=== PATIENT | female | born 1940 | race Caucasian/White ===

== ENCOUNTER 2017-07-03 16:02 | Inpatient (IN) | payer MEDICARE, OTHER, SELFPAY ==
[2017-07-03] VITALS (8 sets, daily range): BP systolic 127–161; BP diastolic 58–70; PULSE 73–86; RESP 16–20; TEMP 36.4–36.8; O2SAT 99–100; BMI 31.1; BMI 30.6
--- NOTE | 2017-07-03 16:31 | EKG12_ITS ---
Test Reason : GI BLEED Blood Pressure : / mmHG Vent. Rate : 080 BPM Atrial Rate : 080 BPM P-R Int : 160 ms QRS Dur : 086 ms QT Int : 390 ms P-R-T Axes : 075 000 078 degrees QTc Int : 449 ms Normal sinus rhythm Nonspecific T wave abnormality Abnormal ECG Confirmed by ADELINE STEVENSON, JI ([id number]), material expeditor BERNARD WOOD ([id number] on 07/06/2017 1:57:33 PM Referred By: Confirmed By:JI LR MD
--- NOTE | 2017-07-03 16:35 | ED.DCSUM_ITS ---
- ER Visit Summary Date of Service: 07/03/17 Chief Complaint: GI bleed History of Present Illness: The patient is a 76 F reports 3 episodes of bright red blood per rectum with stool since this morning. She reports rare abdominal cramping. She does not member when her last colonoscopy was that he has been several years. She has had polyps removed that were all benign. She also reports having a mechanical fall 2 days ago and developed a bruise on her right hip and her right elbow. Physical Examination: Vital signs are unremarkable. She is on home oxygen. Head and neck examination is unremarkable. Heart is regular rate and rhythm. Lung sounds are clear. Abdomen is soft with minimal suprapubic tenderness. No guarding or rebound. Rectal examination does reveal bright red blood on gloved finger. Test Results: EKG is sinus 80 with no sign of acute ischemia. CBC was normal white count. Hemoglobin is 9.7. Last hemoglobin in our system is from March 072016 at which time her hemoglobin was 12.2. Chemistry studies reveal bicarb of 33. BUN is 22. Creatinine is normal. INR and PTT are normal. Emergency Department Course and Treatment: Patient has remained stable on the emergency department. I spoke with Dr. Mcgill, on-call for general surgery. He will scope the patient tomorrow if hospitalist can do bowel prep tonight. I will speak with hospitalist for admission. Treatment Plan: [] Disposition: Admit Impression: GI bleed This note was generated with [employer] dictation software. It may contain incorrect words, spelling, and punctuation that were not noted in review of the chart prior to signing ED Disposition - Plan for ED Patient: Chief Complaint: GI Bleed Referrals: Care Physician,No Primary [NON-STAFF] -
[2017-07-03] MEDS: 0.9% Normal Saline 1,000 ML 150 ML IV ×2 (16:45→22:27)
[2017-07-03 16:49] LABS: Absolute Lymphocyte Count 1.93 X10^3/ul (0.83-4.51); Absolute Neutrophil Count 7.1 X10^3/uL (2.0-7.7); Basophil# 0.03 X10^3/uL; Basophil% 0.3 % (0-1); Eosinophil# 0.26 X10^3/uL; Eosinophils% 2.5 % (0-5); Hematocrit 30.9 % (37-47); Hemoglobin 9.7 g/dl (12.0-15.0); Lymphocyte # 1.93 X10^3/ul (4.0); Lymphocyte % 18.8 % (19-41); Mean Corp Hgb Conc 31.4 g/gl (32-36); Mean Corpuscular Hgb 30.8 pg (27.0-32.0); Mean Corpuscular Volume 98.1 fL (81-99); Mean Platelet Vol. 10.4 fl (6.2-12.0); Monocyte# 0.99 X10^3/uL; Monocyte% 9.6 % (0-10); Neutrophil # 7.07 X10^3/uL (2.7-7.7); Neutrophil % 68.7 % (47-70); Platelet Count 234 K/mm3 (150-450); RBC Distribution Width CV 14.2 % (11.6-14.6); Red Blood Count 3.15 M/mm3 (4.2-5.4); White Blood Count 10.3 K/mm3 (4.4-11.0)
[2017-07-03 16:53] LABS: POSITIVE COUNT NO; POSITIVE DIFFERENTIAL NO; POSITIVE MORPHOLOGY NO
[2017-07-03 17:00] LABS: International Normalized Ratio 1.1; Prothrombin Time (Protime)PT. 14.1 SECONDS (11.7-14.9)
[2017-07-03 17:01] LABS: Partial Thromboplast Time 32.6 Seconds (24.1-36.2)
[2017-07-03 17:02] LABS: Anion Gap 2 (5-15); BUN 22 mg/dL (7-18); BUN/Creat Ratio 23.1 RATIO (10-20); Calcium,Total 8.1 mg/dL (8.5-10.1); Chloride 107 mmol/L (98-107); Creatinine, Serum 0.95 mg/dL (0.55-1.02); EST Glomerular Filtration Rate 61 mL/min (>60); Est Glom Filt Rate - Afr Amer 73 mL/min (>60); Estimated Creatinine Clearance 42.98 ml/min; Glucose 146 mg/dL (74-106); Sodium Level 142 mmol/L (136-145)
--- NOTE | 2017-07-03 17:46 | PCM.HP.STD ---
Problem List (1) Rectal bleeding Status: Acute History of Present Illness Date of Admission: 07/03/17 Chief Complaint: rectal bleeding The patient is a 76 year old F with past medical history of [place] in April 2017 status post stent and on aspirin and Brilinta as well as hypertension and hyperlipidemia. She was admitted via the ED on July 03, 2017 with a complaint of 3 episode of bright red bleeding per rectum since morning of admission. There is the first time she has ever had such complaints. According to her she woke up this morning and wanted to have a bowel movement but noticed that it was only blood with associated clots. This required twice over the course of a few hours. She therefore decided to come in to the ED to be assessed. She also had associated lightheadedness and dizziness but denied any shortness of breath. She does remember the last time she had a colonoscopy but does remember that she had polyps removed which were benign. She had a fall 2 days ago and sustained a bruise on her right hip and right elbow. She denies any fever or chills, any cough or chest pain, diarrhea. She does admit to left lower quadrant abdominal pain which she states is chronic and she thought it was due to hernia that she had been told she had. In the ED vitals were unremarkable, and hemoglobin was 9.7. It was normal at the last count in February 2071 was 12.2. PT and INR within normal limits and BMP showed BUN of 22 and bicarb of 33 but was otherwise normal. She has been admitted to be worked up for rectal bleeding. She is to remain n.p.o. and Dr. Mcgill's plan is to scope her tomorrow. [] Past Medical History Past Medical History (Chronic Problems): Chronic Problems HLD (hyperlipidemia) (Chronic) HTN (hypertension) (Chronic) Chronic respiratory failure with hypoxia and hypercapnia (Chronic) Obesity (BMI 30.0-34.9) (Chronic) COPD (chronic obstructive pulmonary disease) (Chronic) Osteoarthritis (Chronic) Venous insufficiency of both lower extremities (Chronic) Allergies codeine Adverse Reaction (Verified 07/03/17 16:07) Upset Stomach Home Medications: Ambulatory Orders Medication Instructions Recorded Citalopram Hydrobromide 20 mg PO DAILY 03/06/17 [Citalopram HBr] Cyclobenzaprine [Flexeril] 5 mg PO DAILY 03/06/17 Dicyclomine HCl [Bentyl] 10 mg PO TIDAC PRN 03/06/17 Gabapentin [Neurontin] 300 mg PO TIDCM 03/06/17 Pantoprazole Sodium [Protonix] 40 mg PO DAILY 03/06/17 Albuterol IH (ProAir) [Proair Hfa 2 puff INHALATION Q4H PRN PRN 07/03/17 (SP)Vent Pts] Aspirin [Aspirin EC] 81 mg PO DAILY 07/03/17 Atorvastatin Calcium [Lipitor] 80 mg PO QHS 07/03/17 Carvedilol 6.25 mg PO BID 07/03/17 Fluticasone/Salmeterol [Advair 1 puff INHALATION BID 07/03/17 500/50 Mcg Diskus] Hydrocodone Bitart/Apap 5-325 1 tablet PO Q6H PRN PRN 07/03/17 [[place] 5MG-325MG] Lisinopril [Zestril] 10 mg PO DAILY 07/03/17 Nitroglycerin [Nitrostat] 0.4 mg SUBLINGUAL Q5M PRN 07/03/17 Ticagrelor [Brilinta] 90 mg PO BID 07/03/17 Tolterodine Tartrate [Tolterodine 4 mg PO DAILY 07/03/17 Tartrate ER] Triamcinolone 0.5% Cream 1 applic TOPICAL BID 07/03/17 [Triamcinolone Acetonide] Surgical History: cholecystectomy, hysterectomy - With bilateral oophorectomy for an abnormal ovary. 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 Denies: Chest Pain, Chest Tightness, Orthopnea, Palpitations, Syncope Respiratory: Denies: Cough, Shortness of breath at rest, Sputum production Gastrointestinal: Reports: Abdominal Pain, Hematochezia. Denies: Constipation, Diarrhea, Hematemesis, Nausea, Vomiting Genitourinary: Denies: Dysuria Musculoskeletal: Denies: Joint Pain, Joint Tenderness Skin: Reports: - - bruise over right hip Neurological: Denies: Numbness, Tingling, Focal weakness Psychiatric: Denies: Anxiety, Depression, Homicidal Ideations, Suicidal Ideations Hematologic/ Lymphatic: Denies: Easy Bruising, Easy Bleeding VTE Information - Inpt Only VTE Present on Admission: No VTE Mechan Device Prophylaxis: SCD's VTE Pharm Prophylaxis ordered?: No Reason prophylaxis not ordered:: Medical Contraindication - Rectal bleeding Patient Problems: Active and Suspected Problems Rectal bleeding (Acute) - Physical Exam General: Alert, Oriented x3, Cooperative, No apparent distress HEENT: Atraumatic, PERRLA, EOMI, Normocephalic Oral: Moist Mucosa Neck: Supple, No JVD, Negative Carotid Bruits Lungs: Clear to auscultation, Normal air movement, No rhonchi, No wheeze, No rales Cardiovascular: Regular rate, Regular Rhythm, Normal S1, Normal S2, No murmurs Abdomen: Bowel Sounds Present, Soft, Non Tender, Non-Distended, No Hepato-splenomegaly Extremities: No clubbing, No cyanosis, No edema, Capillary Refill Less than 3 Seconds, - Skin: No rashes, No breakdown, - - Has large ecchymotic bruise over the left hip Musculoskeletal: No Tenderness to Palpation of Joints or Extremities Lymphatic: No Cervical, Supraclavicular, or Inguinal Adenopathy Neurological: Cranial nerves II-XII grossly intact Psych/Mental Status: Normal Affect, Appropriate, Alert and oriented to time, place, person, mood and affect Vital Signs Temp Pulse Resp BP Pulse Ox 98.3 F 77 18 127/69 H 99 07/03/17 16:05 07/03/17 17:42 07/03/17 17:42 07/03/17 17:42 07/03/17 16:05 Laboratory Results 07/03/17 07/03/17 07/03/17 Range/Units 16:40 16:40 16:40 WBC 10.3 (4.4-11.0) K/mm3 RBC 3.15 L (4.2-5.4) M/mm3 Hgb 9.7 L (12.0-15.0) g/dl Hct 30.9 L (37-47) % MCV 98.1 (81-99) fL MCH 30.8 (27.0-32.0) pg MCHC 31.4 L (32-36) g/gl RDW 14.2 (11.6-14.6) % RDW Differential 51.0 H (35.1-43.9) fl Plt Count 234 (150-450) K/mm3 MPV 10.4 (6.2-12.0) fl Immature Gran % (Auto) 0.100 (0.0-0.9) % Neut % (Auto) 68.7 (47-70) % Lymph % (Auto) 18.8 L (19-41) % [place] % (Auto) 9.6 (0-10) % Eos % (Auto) 2.5 (0-5) % Baso % (Auto) 0.3 (0-1) % Absolute Neuts (auto) 7.1 (2.0-7.7) X10^3/uL Absolute Lymphs (auto) 1.93 (0.83-4.51) X10^3/ul Total Counted Not Reportable PT 14.1 (11.7-14.9) SECONDS INR 1.1 APTT 32.6 (24.1-36.2) Seconds Sodium 142 (136-145) mmol/L Potassium 4.0 (3.5-5.1) mmol/L Chloride 107 (98-107) mmol/L Carbon Dioxide 33.0 H (21.0-32.0) mmol/L Anion Gap 2 L (5-15) BUN 22 H (7-18) mg/dL Creatinine 0.95 (0.55-1.02) mg/dL Estim Creat Clear Calc 42.98 ml/min Est GFR (MDRD) Af Amer 73 (>60) mL/min Est GFR (MDRD) Non-Af 61 (>60) mL/min BUN/Creatinine Ratio 23.1 H (10-20) RATIO Glucose 146 H (74-106) mg/dL Calcium 8.1 L (8.5-10.1) mg/dL Blood Type Antibody Screen 07/03/17 Range/Units 16:40 WBC (4.4-11.0) K/mm3 RBC (4.2-5.4) M/mm3 Hgb (12.0-15.0) g/dl Hct (37-47) % MCV (81-99) fL MCH (27.0-32.0) pg MCHC (32-36) g/gl RDW (11.6-14.6) % RDW Differential (35.1-43.9) fl Plt Count (150-450) K/mm3 MPV (6.2-12.0) fl Immature Gran % (Auto) (0.0-0.9) % Neut % (Auto) (47-70) % Lymph % (Auto) (19-41) % [place] % (Auto) (0-10) % Eos % (Auto) (0-5) % Baso % (Auto) (0-1) % Absolute Neuts (auto) (2.0-7.7) X10^3/uL Absolute Lymphs (auto) (0.83-4.51) X10^3/ul Total Counted PT (11.7-14.9) SECONDS INR APTT (24.1-36.2) Seconds Sodium (136-145) mmol/L Potassium (3.5-5.1) mmol/L Chloride (98-107) mmol/L Carbon Dioxide (21.0-32.0) mmol/L Anion Gap (5-15) BUN (7-18) mg/dL Creatinine (0.55-1.02) mg/dL Estim Creat Clear Calc ml/min Est GFR (MDRD) Af Amer (>60) mL/min Est GFR (MDRD) Non-Af (>60) mL/min BUN/Creatinine Ratio (10-20) RATIO Glucose (74-106) mg/dL Calcium (8.5-10.1) mg/dL Blood Type O POSITIVE Antibody Screen NEGATIVE Assessment/Plan Active and Suspected Problems Rectal bleeding (Acute) 76-year-old lady with past medical history of benign polyps, [place] status post stenting April 2017, hypertension presents with a 1 day history of 3 episodes of bright red rectal bleeding which occurred on 07/03/2017. With associated clots. She also had lightheadedness and dizziness. Of note patient fell 2 days ago even though she denies loss of consciousness with it. 1. Hematochezia, possibly due to ischemic colitis vs diverticular bleed vs malignancy Currently stable. Vitals are within normal limits. History of removal of polyps but does not remember when she had her last colonoscopy. CBC significant for hemoglobin of 9.7. Last hemoglobin from February 2017 was 12.2. PT and INR was normal Admit to [facility] floor with telemetry. Keep n.p.o. Will start IV fluids normal saline at 150 cc/h. Patient GoLYTELY 2 L at 6 PM and 2 L tomorrow at 6 PM his bowel prep for possible EGD and colonoscopy by Dr. Mcgill tomorrow. Patient's blood pressure to be kept around 130 systolic and above to prevent hypotension on account of suspicion of ischemic colitis. Hold aspirin and Brilinta. 2. [place] s/p stents Stents put in April 2017. On aspirin and Brilinta. Will hold these due to rectal bleeding. On high intensity statin. 3. Hypertension: Controlled. Lisinopril 10 mg daily. Also on carvedilol 6.25 mg twice daily. Will continue. To maintain SBP>140mmHg due to suspicion for ischemic colitis 4. Hyperlipidemia: on statin. 4. DVT Prophylaxis: SCDs. 5. GI prophylaxis: IV PPI. Code Visit Inpatient E&M: 80197 Init Hosp L3
--- NOTE | 2017-07-03 17:57 | HP.PCM_ITS ---
Problem List (1) Rectal bleeding Status: Acute History of Present Illness Date of Admission: 07/03/17 Chief Complaint: rectal bleeding The patient is a 76 year old F with past medical history of [place] in April 2017 status post stent and on aspirin and Brilinta as well as hypertension and hyperlipidemia. She was admitted via the ED on July 03, 2017 with a complaint of 3 episode of bright red bleeding per rectum since morning of admission. There is the first time she has ever had such complaints. According to her she woke up this morning and wanted to have a bowel movement but noticed that it was only blood with associated clots. This required twice over the course of a few hours. She therefore decided to come in to the ED to be assessed. She also had associated lightheadedness and dizziness but denied any shortness of breath. She does remember the last time she had a colonoscopy but does remember that she had polyps removed which were benign. She had a fall 2 days ago and sustained a bruise on her right hip and right elbow. She denies any fever or chills, any cough or chest pain, diarrhea. She does admit to left lower quadrant abdominal pain which she states is chronic and she thought it was due to hernia that she had been told she had. In the ED vitals were unremarkable, and hemoglobin was 9.7. It was normal at the last count in February 2071 was 12.2. PT and INR within normal limits and BMP showed BUN of 22 and bicarb of 33 but was otherwise normal. She has been admitted to be worked up for rectal bleeding. She is to remain n.p.o. and Dr. Mcgill's plan is to scope her tomorrow. [] Past Medical History Past Medical History (Chronic Problems): Chronic Problems HLD (hyperlipidemia) (Chronic) HTN (hypertension) (Chronic) Chronic respiratory failure with hypoxia and hypercapnia (Chronic) Obesity (BMI 30.0-34.9) (Chronic) COPD (chronic obstructive pulmonary disease) (Chronic) Osteoarthritis (Chronic) Venous insufficiency of both lower extremities (Chronic) Allergies codeine Adverse Reaction (Verified 07/03/17 16:07) Upset Stomach Home Medications: Ambulatory Orders Medication Instructions Recorded Citalopram Hydrobromide 20 mg PO DAILY 03/06/17 [Citalopram HBr] Cyclobenzaprine [Flexeril] 5 mg PO DAILY 03/06/17 Dicyclomine HCl [Bentyl] 10 mg PO TIDAC PRN 03/06/17 Gabapentin [Neurontin] 300 mg PO TIDCM 03/06/17 Pantoprazole Sodium [Protonix] 40 mg PO DAILY 03/06/17 Albuterol IH (ProAir) [Proair Hfa 2 puff INHALATION Q4H PRN PRN 07/03/17 (SP)Vent Pts] Aspirin [Aspirin EC] 81 mg PO DAILY 07/03/17 Atorvastatin Calcium [Lipitor] 80 mg PO QHS 07/03/17 Carvedilol 6.25 mg PO BID 07/03/17 Fluticasone/Salmeterol [Advair 1 puff INHALATION BID 07/03/17 500/50 Mcg Diskus] Hydrocodone Bitart/Apap 5-325 1 tablet PO Q6H PRN PRN 07/03/17 [[place] 5MG-325MG] Lisinopril [Zestril] 10 mg PO DAILY 07/03/17 Nitroglycerin [Nitrostat] 0.4 mg SUBLINGUAL Q5M PRN 07/03/17 Ticagrelor [Brilinta] 90 mg PO BID 07/03/17 Tolterodine Tartrate [Tolterodine 4 mg PO DAILY 07/03/17 Tartrate ER] Triamcinolone 0.5% Cream 1 applic TOPICAL BID 07/03/17 [Triamcinolone Acetonide] Surgical History: cholecystectomy, hysterectomy - With bilateral oophorectomy for an abnormal ovary. 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 Denies: Chest Pain, Chest Tightness , Orthopnea, Palpitations, Syncope Respiratory: Denies: Cough, Shortness of breath at rest, Sputum production Gastrointestinal: Reports: Abdominal Pain, Hematochezia. Denies: Constipation, Diarrhea, Hematemesis, Nausea, Vomiting Genitourinary: Denies: Dysuria Musculoskeletal: Denies: Joint Pain, Joint Tenderness Skin: Reports: - - bruise over right hip Neurological: Denies: Numbness, Tingling, Focal weakness Psychiatric: Denies: Anxiety, Depression, Homicidal Ideations, Suicidal Ideations Hematologic/ Lymphatic: Denies: Easy Bruising, Easy Bleeding VTE Information - Inpt Only VTE Present on Admission: No VTE Mechan Device Prophylaxis: SCD's VTE Pharm Prophylaxis ordered?: No Reason prophylaxis not ordered:: Medical Contraindication - Rectal bleeding Patient Problems: Active and Suspected Problems Rectal bleeding (Acute) - Physical Exam General: Alert, Oriented x3, Cooperative, No apparent distress HEENT: Atraumatic, PERRLA, EOMI, Normocephalic Oral: Moist Mucosa Neck: Supple, No JVD, Negative Carotid Bruits Lungs: Clear to auscultation, Normal air movement, No rhonchi, No wheeze, No rales Cardiovascular: Regular rate, Regular Rhythm, Normal S1, Normal S2, No murmurs Abdomen: Bowel Sounds Present, Soft, Non Tender, Non-Distended, No Hepato- splenomegaly Extremities: No clubbing, No cyanosis, No edema, Capillary Refill Less than 3 Seconds, - Skin: No rashes, No breakdown, - - Has large ecchymotic bruise over the left hip Musculoskeletal: No Tenderness to Palpation of Joints or Extremities Lymphatic: No Cervical, Supraclavicular, or Inguinal Adenopathy Neurological: Cranial nerves II-XII grossly intact Psych/Mental Status: Normal Affect, Appropriate, Alert and oriented to time, place, person, mood and affect Vital Signs Temp Pulse Resp BP Pulse Ox 98.3 F 77 18 127/69 H 99 07/03/17 16:05 07/03/17 17:42 07/03/17 17:42 07/03/17 17:42 07/03/17 16:05 Laboratory Results 07/03/17 07/03/17 07/03/17 Range/Units 16:40 16:40 16:40 WBC 10.3 (4.4-11.0) K/mm3 RBC 3.15 L (4.2-5.4) M/mm3 Hgb 9.7 L (12.0-15.0) g/dl Hct 30.9 L (37-47) % MCV 98.1 (81-99) fL MCH 30.8 (27.0-32.0) pg MCHC 31.4 L (32-36) g/gl RDW 14.2 (11.6-14.6) % RDW Differential 51.0 H (35.1-43.9) fl Plt Count 234 (150-450) K/mm3 MPV 10.4 (6.2-12.0) fl Immature Gran % (Auto) 0.100 (0.0-0.9) % Neut % (Auto) 68.7 (47-70) % Lymph % (Auto) 18.8 L (19-41) % [place] % (Auto) 9.6 (0-10) % Eos % (Auto) 2.5 (0-5) % Baso % (Auto) 0.3 (0-1) % Absolute Neuts (auto) 7.1 (2.0-7.7) X10^3/uL Absolute Lymphs (auto) 1.93 (0.83-4.51) X10^3/ul Total Counted Not Reportable PT 14.1 (11.7-14.9) SECONDS INR 1.1 APTT 32.6 (24.1-36.2) Seconds Sodium 142 (136-145) mmol/L Potassium 4.0 (3.5-5.1) mmol/L Chloride 107 (98-107) mmol/L Carbon Dioxide 33.0 H (21.0-32.0) mmol/L Anion Gap 2 L (5-15) BUN 22 H (7-18) mg/dL Creatinine 0.95 (0.55-1.02) mg/dL Estim Creat Clear Calc 42.98 ml/min Est GFR (MDRD) Af Amer 73 (>60) mL/min Est GFR (MDRD) Non-Af 61 (>60) mL/min BUN/Creatinine Ratio 23.1 H (10-20) RATIO Glucose 146 H (74-106) mg/dL Calcium 8.1 L (8.5-10.1) mg/dL Blood Type Antibody Screen 07/03/17 Range/Units 16:40 WBC (4.4-11.0) K/mm3 RBC (4.2-5.4) M/mm3 Hgb (12.0-15.0) g/dl Hct (37-47) % MCV (81-99) fL MCH (27.0-32.0) pg MCHC (32-36) g/gl RDW (11.6-14.6) % RDW Differential (35.1-43.9) fl Plt Count (150-450) K/mm3 MPV (6.2-12.0) fl Immature Gran % (Auto) (0.0-0.9) % Neut % (Auto) (47-70) % Lymph % (Auto) (19-41) % [place] % (Auto) (0-10) % Eos % (Auto) (0-5) % Baso % (Auto) (0-1) % Absolute Neuts (auto) (2.0-7.7) X10^3/uL Absolute Lymphs (auto) (0.83-4.51) X10^3/ul Total Counted PT (11.7-14.9) SECONDS INR APTT (24.1-36.2) Seconds Sodium (136-145) mmol/L Potassium (3.5-5.1) mmol/L Chloride (98-107) mmol/L Carbon Dioxide (21.0-32.0) mmol/L Anion Gap (5-15) BUN (7-18) mg/dL Creatinine (0.55-1.02) mg/dL Estim Creat Clear Calc ml/min Est GFR (MDRD) Af Amer (>60) mL/min Est GFR (MDRD) Non-Af (>60) mL/min BUN/Creatinine Ratio (10-20) RATIO Glucose (74-106) mg/dL Calcium (8.5-10.1) mg/dL Blood Type O POSITIVE Antibody Screen NEGATIVE Assessment/Plan Active and Suspected Problems Rectal bleeding (Acute) 76-year-old lady with past medical history of benign polyps, [place] status post stenting April 2017, hypertension presents with a 1 day history of 3 episodes of bright red rectal bleeding which occurred on 07/03/2017. With associated clots. She also had lightheadedness and dizziness. Of note patient fell 2 days ago even though she denies loss of consciousness with it. 1. Hematochezia, possibly due to ischemic colitis vs diverticular bleed vs malignancy * Currently stable. Vitals are within normal limits. * History of removal of polyps but does not remember when she had her last colonoscopy. * CBC significant for hemoglobin of 9.7. Last hemoglobin from February 2017 was 12.2. * PT and INR was normal * Admit to [facility] floor with telemetry. * Keep n.p.o. Will start IV fluids normal saline at 150 cc/h. * Patient GoLYTELY 2 L at 6 PM and 2 L tomorrow at 6 PM his bowel prep for possible EGD and colonoscopy by Dr. Mcgill tomorrow. * Patient's blood pressure to be kept around 130 systolic and above to prevent hypotension on account of suspicion of ischemic colitis. * Hold aspirin and Brilinta. * * 2. [place] s/p stents * Stents put in April 2017. On aspirin and Brilinta. Will hold these due to rectal bleeding. On high intensity statin. * 3. Hypertension: Controlled. Lisinopril 10 mg daily. Also on carvedilol 6.25 mg twice daily. Will continue. To maintain SBP>140mmHg due to suspicion for ischemic colitis 4. Hyperlipidemia: on statin. 4. DVT Prophylaxis: SCDs. 5. GI prophylaxis: IV PPI. Code Visit Inpatient E&M: 20875 Init Hosp L3
[2017-07-03] MEDS: Albuterol 2.5 MG/3 ML VIAL.NEB. INHALATION (18:49)
[2017-07-03] MEDS: Budesonide Respules 0.5 MG/2 ML AMPUL.NEB. INHALATION (18:49)
[2017-07-03] MEDS: Electrolyte Solution/Peg's 4000 ML 2000 ML PO (20:45)
[2017-07-03] MEDS: Atorvastatin Calcium 80 MG Tablet PO (21:00)
[2017-07-03] MEDS: Carvedilol 6.25 MG Tablet PO (21:00)
[2017-07-03] MEDS: 0.9% NaCl Peripheral Flush Adult/Peds IV (22:28)
[2017-07-03] MEDS: Ondansetron 4 MG/2 ML Vial IV (22:28)
[2017-07-04] VITALS (22 sets, daily range): BP systolic 88–155; BP diastolic 44–84; PULSE 71–86; RESP 16–18; TEMP 36.6–37.2; O2SAT 97–100; BMI 30.6
[2017-07-04] MEDS: Electrolyte Solution/Peg's 4000 ML 2000 ML PO (05:10)
[2017-07-04] MEDS: 0.9% Normal Saline 1,000 ML 150 ML IV (05:17)
[2017-07-04 06:31] LABS: Hematocrit 23.3 % (37-47); Hemoglobin 7.2 g/dl (12.0-15.0); Mean Corp Hgb Conc 30.9 g/gl (32-36); Mean Corpuscular Hgb 31.3 pg (27.0-32.0); Mean Corpuscular Volume 101.3 fL (81-99); Mean Platelet Vol. 10.9 fl (6.2-12.0); Platelet Count 202 K/mm3 (150-450); RBC Distribution Width CV 13.9 % (11.6-14.6); RBC Distribution Width SD 49.1 fl (35.1-43.9); White Blood Count 9.7 K/mm3 (4.4-11.0)
[2017-07-04 06:35] LABS: Scan Indicated on CBC? Y/N NO
[2017-07-04 07:00] LABS: Anion Gap 5 (5-15); BUN 15 mg/dL (7-18); BUN/Creat Ratio 24.5 RATIO (10-20); Calcium,Total 7.7 mg/dL (8.5-10.1); Chloride 109 mmol/L (98-107); Creatinine, Serum 0.61 mg/dL (0.55-1.02); EST Glomerular Filtration Rate 101 mL/min (>60); Est Glom Filt Rate - Afr Amer 122 mL/min (>60); Estimated Creatinine Clearance 40.83 ml/min; Glucose 115 mg/dL (74-106); Sodium Level 141 mmol/L (136-145)
[2017-07-04] MEDS: Budesonide Respules 0.5 MG/2 ML AMPUL.NEB. INHALATION ×2 (07:01→18:58)
[2017-07-04] MEDS: Albuterol 2.5 MG/3 ML VIAL.NEB. INHALATION ×2 (07:01→18:58)
--- NOTE | 2017-07-04 08:10 | PCM.PROGNOTE ---
Patient Problems: Active and Suspected Problems Rectal bleeding (Acute) Subjective: Chief complaint: Follow-up after admission for GI bleed and acute blood loss anemia. Patient seen and examined. No acute events overnight. She still complaining of lower GI bleed. This morning, she had one episode of rectal bleeding with maroon colored stool. She denied significant abdominal pain, just reported mild discomfort at the lower abdomen. Denied nausea vomiting. Denied urinary symptoms, no hematuria. Vital signs are stable. - Physical Exam General: Alert, Oriented x3, Cooperative, No apparent distress HEENT: Atraumatic, PERRLA, EOMI Oral: Moist Mucosa, No Gingival or Mucosal Lesions/ Ulcerations Neck: Supple, No JVD, Negative Carotid Bruits, Trachea Midline, Thyroid Normal Size and Texture Lungs: Clear to auscultation, No rhonchi, No wheeze, No rales, Diminished Cardiovascular: Regular rate, Regular Rhythm, Normal S1, Normal S2, PMI Normal Abdomen: Bowel Sounds Present, Soft, Non Tender, Non-Distended, No Hepato-splenomegaly Extremities: No clubbing, No cyanosis, No edema Skin: No rashes, No breakdown Lymphatic: No Cervical, Supraclavicular, or Inguinal Adenopathy Neurological: Cranial nerves II-XII grossly intact, Motor Exam 5/5 strength throughout Psych/Mental Status: Normal Affect, Appropriate, Alert and oriented to time, place, person, mood and affect Vital Signs Temp Pulse Resp BP Pulse Ox 98.2 F 86 18 124/53 H 98 07/04/17 03:00 07/04/17 07:01 07/04/17 07:01 07/04/17 03:00 07/04/17 07:01 Oxygen Flow Rate 2 Oxygen Delivery Method Nasal Cannula Weight: 173 lb Body Mass Index (BMI) 30.6 Intake and Output for Last 24 Hours 07/02/17 07/03/17 07/04/17 23:59 23:59 23:59 Intake Total 2558 / 2558 1339 / 1339 Output Total 600 / 600 300 / 300 Balance 1957 / 1957 1039 / 1039 Laboratory Tests Past 24 Hrs 07/04/17 07/04/17 06:18 06:18 WBC 9.7 RBC 2.30 L Hgb 7.2 L Hct 23.3 L MCV 101.3 H MCH 31.3 MCHC 30.9 L RDW 13.9 RDW Differential 49.1 H Plt Count 202 MPV 10.9 Sodium 141 Potassium 4.0 Chloride 109 H Carbon Dioxide 27.0 Anion Gap 5 BUN 15 Creatinine 0.61 Estim Creat Clear Calc 40.83 Est GFR (MDRD) Af Amer 122 Est GFR (MDRD) Non-Af 101 BUN/Creatinine Ratio 24.5 H Glucose 115 H Calcium 7.7 L Assessment/Plan Active and Suspected Problems Rectal bleeding (Acute) This is a 76 years old female patient presented to the medicine because of rectal bleeding, found to have acute blood loss anemia. #1 GI bleed: Probably lower GI bleed secondary to diverticular bleed. Patient has been on aspirin and Brilinta since April,. She still having active bleeding at this time. Vital signs stable. She does have acute anemia. She is on preparation for colonoscopy. Her pro time and INR were normal. Platelet count is normal. General surgery consulted, plan for colonoscopy today. #2 acute blood loss anemia: Secondary to above. Baseline hemoglobin is normal. Admission hemoglobin was 9.7 g/dL, came down to 7.2 g/dL today. Plan: Transfuse 1 unit of packed RBCs, repeat H&H at 4 PM today. #3 CAD status post stents: She had a recent history of MA in April, status post stents. Aspirin and Brilinta held, she is on statins and Coreg as well as lisinopril. At this time, will restart Brilinta because of recent stents, keep holding aspirin, plan as above. #4 hypertension: Blood pressure stable, continue current medications. #5 hyperlipidemia: Continue statins. #6 COPD: Stable, pulse ox is normal on 2 L of oxygen. She is on bronchodilators. #7 DVT prophylaxis: SCDs. This note was generated with [employer] dictation software. It may contain incorrect words, spelling, and punctuation that were not noted in checking the note before signing. Code Visit Inpatient E&M: 13412 Subs Hosp L2
--- NOTE | 2017-07-04 08:18 | PN_ITS ---
Patient Problems: Active and Suspected Problems Rectal bleeding (Acute) Subjective: Chief complaint: Follow-up after admission for GI bleed and acute blood loss anemia. Patient seen and examined. No acute events overnight. She still complaining of lower GI bleed. This morning, she had one episode of rectal bleeding with maroon colored stool. She denied significant abdominal pain, just reported mild discomfort at the lower abdomen. Denied nausea vomiting. Denied urinary symptoms, no hematuria. Vital signs are stable. - Physical Exam General: Alert, Oriented x3, Cooperative, No apparent distress HEENT: Atraumatic, PERRLA, EOMI Oral: Moist Mucosa, No Gingival or Mucosal Lesions/ Ulcerations Neck: Supple, No JVD, Negative Carotid Bruits, Trachea Midline, Thyroid Normal Size and Texture Lungs: Clear to auscultation, No rhonchi, No wheeze, No rales, Diminished Cardiovascular: Regular rate, Regular Rhythm, Normal S1, Normal S2, PMI Normal Abdomen: Bowel Sounds Present, Soft, Non Tender, Non-Distended, No Hepato- splenomegaly Extremities: No clubbing, No cyanosis, No edema Skin: No rashes, No breakdown Lymphatic: No Cervical, Supraclavicular, or Inguinal Adenopathy Neurological: Cranial nerves II-XII grossly intact, Motor Exam 5/5 strength throughout Psych/Mental Status: Normal Affect, Appropriate, Alert and oriented to time, place, person, mood and affect Vital Signs Temp Pulse Resp BP Pulse Ox 98.2 F 86 18 124/53 H 98 07/04/17 03:00 07/04/17 07:01 07/04/17 07:01 07/04/17 03:00 07/04/17 07:01 Oxygen Flow Rate 2 Oxygen Delivery Method Nasal Cannula Weight: 173 lb Body Mass Index (BMI) 30.6 Intake and Output for Last 24 Hours 07/02/17 07/03/17 07/04/17 23:59 23:59 23:59 Intake Total 2558 / 2558 1339 / 1339 Output Total 600 / 600 300 / 300 Balance 1957 / 1957 1039 / 1039 Laboratory Tests Past 24 Hrs 07/04/17 07/04/17 06:18 06:18 WBC 9.7 RBC 2.30 L Hgb 7.2 L Hct 23.3 L MCV 101.3 H MCH 31.3 MCHC 30.9 L RDW 13.9 RDW Differential 49.1 H Plt Count 202 MPV 10.9 Sodium 141 Potassium 4.0 Chloride 109 H Carbon Dioxide 27.0 Anion Gap 5 BUN 15 Creatinine 0.61 Estim Creat Clear Calc 40.83 Est GFR (MDRD) Af Amer 122 Est GFR (MDRD) Non-Af 101 BUN/Creatinine Ratio 24.5 H Glucose 115 H Calcium 7.7 L Assessment/Plan Active and Suspected Problems Rectal bleeding (Acute) This is a 76 years old female patient presented to the medicine because of rectal bleeding, found to have acute blood loss anemia. #1 GI bleed: Probably lower GI bleed secondary to diverticular bleed. Patient has been on aspirin and Brilinta since April,. She still having active bleeding at this time. Vital signs stable. She does have acute anemia. She is on preparation for colonoscopy. Her pro time and INR were normal. Platelet count is normal. General surgery consulted, plan for colonoscopy today. #2 acute blood loss anemia: Secondary to above. Baseline hemoglobin is normal. Admission hemoglobin was 9.7 g/dL, came down to 7.2 g/dL today. Plan: Transfuse 1 unit of packed RBCs, repeat H&H at 4 PM today. #3 CAD status post stents: She had a recent history of DC in April, status post stents. Aspirin and Brilinta held, she is on statins and Coreg as well as lisinopril. At this time, will restart Brilinta because of recent stents, keep holding aspirin, plan as above. #4 hypertension: Blood pressure stable, continue current medications. #5 hyperlipidemia: Continue statins. #6 COPD: Stable, pulse ox is normal on 2 L of oxygen. She is on bronchodilators. #7 DVT prophylaxis: SCDs. This note was generated with [employer] dictation software. It may contain incorrect words, spelling, and punctuation that were not noted in checking the note before signing. Code Visit Inpatient E&M: 96594 Subs Hosp L2
--- NOTE | 2017-07-04 09:06 | NURSING ---
Patient blood transfusion begins at this time- This RN in with patient for first 15 minutes of transfusion while running at 15cc/hr.
--- NOTE | 2017-07-04 09:11 | NURSING ---
Addendum entered by Yadira Rodrigez 07/04/17 09:13: pick up operator would be 1300 today with colonoscopy at 1400 Original Note: Dr. Garcia to complete colonoscopy today. Uncertain of time as patient is added on to current schedule. Could be around 1100, but most likely will be 1300 today
--- NOTE | 2017-07-04 09:22 | PCM.CONS.GEN ---
Problem List (1) Rectal bleeding Status: Acute Reason for Consult Date of Consultation: 07/04/17 Reason for Consultation: GI bleed History of Present Illness: The patient is a 76 year old F who presents with multiple episodes of rectal bleeding. Patient notes she had multiple episodes of bleeding and clots per rectum yesterday. Patient states she had crampiness of the stomach and then diarrhea which ended up being mostly blood. She noted melena and bright red blood. She denies previous history of rectal bleeding. She denies family history of colon cancer. She denies chest pain and hematemesis. She did note feeling dizzy and lightheadedness. Patient stated her last colonoscopy was approximately 5 years ago at [facility]. She noted she had polyps previously. Patient notes her bowel habits are usually normal and soft. Patient notes she had a myocardial infarction in April 2017. She had a stent placed at [facility]. She has not followed up with a well cleaner since her M.I. She is currently maintained on daily 81 mg aspirin and Brilinta. Patient stated she started the Brilinta 2 weeks ago.She currently denies chest pain or increased shortness of breath. Patient also has a history of COPD. She is currently on 1.5-2 Liters of oxygen via nasal canula at home. She notes being on home oxygen for several years. She is a former smoker. She quit 18 years ago. Patient does not follow with a billet sawyer. She notes her PCP manages her COPD and her anticoagulation. Patient denies alcohol consumption. Patient's previous abdominal surgeries include gallbladder, appendix and total hysterectomy. Past Medical History Past Medical History (Chronic Problems): Chronic Problems CAD (coronary artery disease) (Chronic) HLD (hyperlipidemia) (Chronic) HTN (hypertension) (Chronic) Chronic respiratory failure with hypoxia and hypercapnia (Chronic) Obesity (BMI 30.0-34.9) (Chronic) Hiatal hernia with gastroesophageal reflux (Chronic) COPD (chronic obstructive pulmonary disease) (Chronic) Osteoarthritis (Chronic) Venous insufficiency of both lower extremities (Chronic) Allergies codeine Adverse Reaction (Verified 07/03/17 16:07) Upset Stomach Home Medications: Ambulatory Orders Medication Instructions Recorded Citalopram Hydrobromide 20 mg PO DAILY 03/06/17 [Citalopram HBr] Cyclobenzaprine [Flexeril] 5 mg PO DAILY 03/06/17 Dicyclomine HCl [Bentyl] 10 mg PO TIDAC PRN 03/06/17 Gabapentin [Neurontin] 300 mg PO TIDCM 03/06/17 Pantoprazole Sodium [Protonix] 40 mg PO DAILY 03/06/17 Albuterol IH (ProAir) [Proair Hfa 2 puff INHALATION Q4H PRN PRN 07/03/17 (SP)Vent Pts] Aspirin [Aspirin EC] 81 mg PO DAILY 07/03/17 Atorvastatin Calcium [Lipitor] 80 mg PO QHS 07/03/17 Carvedilol 6.25 mg PO BID 07/03/17 Fluticasone/Salmeterol [Advair 1 puff INHALATION BID 07/03/17 500/50 Mcg Diskus] Hydrocodone Bitart/Apap 5-325 1 tablet PO Q6H PRN PRN 07/03/17 [[place] 5MG-325MG] Lisinopril [Zestril] 10 mg PO DAILY 07/03/17 Nitroglycerin [Nitrostat] 0.4 mg SUBLINGUAL Q5M PRN 07/03/17 Ticagrelor [Brilinta] 90 mg PO BID 07/03/17 Tolterodine Tartrate [Tolterodine 4 mg PO DAILY 07/03/17 Tartrate ER] Triamcinolone 0.5% Cream 1 applic TOPICAL BID 07/03/17 [Triamcinolone Acetonide] Surgical History: cholecystectomy, hysterectomy - With bilateral oophorectomy for an abnormal ovary. 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: No pertinent DIRECTOR OF GROUP COUNSELING PROGRAM history Lives: Alone Smoking Status: Former smoker Alcohol: None - *Family History Maternal History Items: - - denies any hx of CAD Paternal History Items: Heart Disease - in her father at 60 YOA Review of Systems Constitutional: Denies: Chills, Fever, Weight Change HEENT: Denies: Head Aches, Sinus Congestion, Sinus Drainage Cardiovascular: Denies: Chest Pain, Palpitations Respiratory: Denies: Cough, Shortness of breath at rest, Sputum production Gastrointestinal: Reports: Abdominal Pain - More crampy-like symptoms, Diarrhea, Hematochezia, Melena. Denies: Hematemesis, Nausea, Vomiting Genitourinary: Denies: Dysuria Musculoskeletal: Reports: Joint stiffness Skin: Denies: Rash, Wounds Neurological: Denies: Numbness, Tingling, Focal weakness Psychiatric: Denies: Anxiety, Depression, Homicidal Ideations, Suicidal Ideations Hematologic/ Lymphatic: Reports: Anemia. Denies: Easy Bruising, Easy Bleeding Patient Problems: Active and Suspected Problems Rectal bleeding (Acute) - Physical Exam General: Alert, Oriented x3, Cooperative HEENT: Atraumatic, PERRLA, EOMI, Normocephalic Neck: Supple, No JVD, Negative Carotid Bruits Lungs: Clear to auscultation, Normal air movement Cardiovascular: Regular rate, No murmurs Abdomen: Bowel Sounds Present, Soft, Non-Distended, Tender - generalized Extremities: No edema, Capillary Refill Less than 3 Seconds Skin: No rashes, No breakdown Musculoskeletal: No Tenderness to Palpation of Joints or Extremities Neurological: Cranial nerves II-XII grossly intact Psych/Mental Status: Normal Affect, Appropriate Vital Signs Temp Pulse Resp BP Pulse Ox 98.5 F 71 16 129/58 H 100 07/04/17 09:03 07/04/17 09:03 07/04/17 09:03 07/04/17 09:03 07/04/17 09:03 Oxygen Flow Rate 2 Oxygen Delivery Method Nasal Cannula Weight: 173 lb Body Mass Index (BMI) 30.6 Intake and Output for Last 24 Hours 07/02/17 07/03/17 07/04/17 23:59 23:59 23:59 Intake Total 2558 / 2558 1339 / 1339 Output Total 600 / 600 300 / 300 Balance 1957 / 1957 1039 / 1039 Laboratory Tests Past 24 Hrs 07/04/17 07/04/17 06:18 06:18 WBC 9.7 RBC 2.30 L Hgb 7.2 L Hct 23.3 L MCV 101.3 H MCH 31.3 MCHC 30.9 L RDW 13.9 RDW Differential 49.1 H Plt Count 202 MPV 10.9 Sodium 141 Potassium 4.0 Chloride 109 H Carbon Dioxide 27.0 Anion Gap 5 BUN 15 Creatinine 0.61 Estim Creat Clear Calc 40.83 Est GFR (MDRD) Af Amer 122 Est GFR (MDRD) Non-Af 101 BUN/Creatinine Ratio 24.5 H Glucose 115 H Calcium 7.7 L Assessment/Plan Active and Suspected Problems Rectal bleeding (Acute) I have been consulted in conjunction with Dr. Mcgill. Dr. Mcgill will independently evaluate this patient Impression: Lower GI bleed Plan: I have discussed this patient with Dr. Mcgill. Dr. Mcgill will plan to perform EGD and colonoscopy with possible biopsies under MAC today. Procedure details, risks, and benefits have been explained to the patient. Patient has had the opportunity to ask and have questions answered. Patient verbally understands and agrees to proceed with the proposed procedure. Patient has been undergoing a bowel prep. Her ASA and Brilinta have been held since yesterday. Restarting anticoagulation will be determined following the scope. Thank you for allowing me to participate in this patient's care. My recommendations will be available via electronic medical records.
[2017-07-04] MEDS: 0.9% NaCl Peripheral Flush Adult/Peds IV (09:33)
[2017-07-04] MEDS: Ondansetron 4 MG/2 ML Vial IV (09:33)
--- NOTE | 2017-07-04 09:34 | CON.PCM_ITS ---
Problem List (1) Rectal bleeding Status: Acute Reason for Consult Date of Consultation: 07/04/17 Reason for Consultation: GI bleed History of Present Illness: The patient is a 76 year old F who presents with multiple episodes of rectal bleeding. Patient notes she had multiple episodes of bleeding and clots per rectum yesterday. Patient states she had crampiness of the stomach and then diarrhea which ended up being mostly blood. She noted melena and bright red blood. She denies previous history of rectal bleeding. She denies family history of colon cancer. She denies chest pain and hematemesis. She did note feeling dizzy and lightheadedness. Patient stated her last colonoscopy was approximately 5 years ago at [facility]. She noted she had polyps previously. Patient notes her bowel habits are usually normal and soft. Patient notes she had a myocardial infarction in April 2017. She had a stent placed at [facility]. She has not followed up with a sql tech since her M.I. She is currently maintained on daily 81 mg aspirin and Brilinta. Patient stated she started the Brilinta 2 weeks ago.She currently denies chest pain or increased shortness of breath. Patient also has a history of COPD. She is currently on 1.5-2 Liters of oxygen via nasal canula at home. She notes being on home oxygen for several years. She is a former smoker. She quit 18 years ago. Patient does not follow with a railroad purchasing agent. She notes her PCP manages her COPD and her anticoagulation. Patient denies alcohol consumption. Patient's previous abdominal surgeries include gallbladder, appendix and total hysterectomy. Past Medical History Past Medical History (Chronic Problems): Chronic Problems CAD (coronary artery disease) (Chronic) HLD (hyperlipidemia) (Chronic) HTN (hypertension) (Chronic) Chronic respiratory failure with hypoxia and hypercapnia (Chronic) Obesity (BMI 30.0-34.9) (Chronic) Hiatal hernia with gastroesophageal reflux (Chronic) COPD (chronic obstructive pulmonary disease) (Chronic) Osteoarthritis (Chronic) Venous insufficiency of both lower extremities (Chronic) Allergies codeine Adverse Reaction (Verified 07/03/17 16:07) Upset Stomach Home Medications: Ambulatory Orders Medication Instructions Recorded Citalopram Hydrobromide 20 mg PO DAILY 03/06/17 [Citalopram HBr] Cyclobenzaprine [Flexeril] 5 mg PO DAILY 03/06/17 Dicyclomine HCl [Bentyl] 10 mg PO TIDAC PRN 03/06/17 Gabapentin [Neurontin] 300 mg PO TIDCM 03/06/17 Pantoprazole Sodium [Protonix] 40 mg PO DAILY 03/06/17 Albuterol IH (ProAir) [Proair Hfa 2 puff INHALATION Q4H PRN PRN 07/03/17 (SP)Vent Pts] Aspirin [Aspirin EC] 81 mg PO DAILY 07/03/17 Atorvastatin Calcium [Lipitor] 80 mg PO QHS 07/03/17 Carvedilol 6.25 mg PO BID 07/03/17 Fluticasone/Salmeterol [Advair 1 puff INHALATION BID 07/03/17 500/50 Mcg Diskus] Hydrocodone Bitart/Apap 5-325 1 tablet PO Q6H PRN PRN 07/03/17 [[place] 5MG-325MG] Lisinopril [Zestril] 10 mg PO DAILY 07/03/17 Nitroglycerin [Nitrostat] 0.4 mg SUBLINGUAL Q5M PRN 07/03/17 Ticagrelor [Brilinta] 90 mg PO BID 07/03/17 Tolterodine Tartrate [Tolterodine 4 mg PO DAILY 07/03/17 Tartrate ER] Triamcinolone 0.5% Cream 1 applic TOPICAL BID 07/03/17 [Triamcinolone Acetonide] Surgical History: cholecystectomy, hysterectomy - With bilateral oophorectomy for an abnormal ovary. 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 Denies: Hematemesis, Nausea, Vomiting Genitourinary: Denies: Dysuria Musculoskeletal: Reports: Joint stiffness Skin: Denies: Rash, Wounds Neurological: Denies: Numbness, Tingling, Focal weakness Psychiatric: Denies: Anxiety, Depression, Homicidal Ideations, Suicidal Ideations Hematologic/ Lymphatic: Reports: Anemia. Denies: Easy Bruising, Easy Bleeding Patient Problems: Active and Suspected Problems Rectal bleeding (Acute) - Physical Exam General: Alert, Oriented x3, Cooperative HEENT: Atraumatic, PERRLA, EOMI, Normocephalic Neck: Supple, No JVD, Negative Carotid Bruits Lungs: Clear to auscultation, Normal air movement Cardiovascular: Regular rate, No murmurs Abdomen: Bowel Sounds Present, Soft, Non-Distended, Tender - generalized Extremities: No edema, Capillary Refill Less than 3 Seconds Skin: No rashes, No breakdown Musculoskeletal: No Tenderness to Palpation of Joints or Extremities Neurological: Cranial nerves II-XII grossly intact Psych/Mental Status: Normal Affect, Appropriate Vital Signs Temp Pulse Resp BP Pulse Ox 98.5 F 71 16 129/58 H 100 07/04/17 09:03 07/04/17 09:03 07/04/17 09:03 07/04/17 09:03 07/04/17 09:03 Oxygen Flow Rate 2 Oxygen Delivery Method Nasal Cannula Weight: 173 lb Body Mass Index (BMI) 30.6 Intake and Output for Last 24 Hours 07/02/17 07/03/17 07/04/17 23:59 23:59 23:59 Intake Total 2558 / 2558 1339 / 1339 Output Total 600 / 600 300 / 300 Balance 1957 / 1957 1039 / 1039 Laboratory Tests Past 24 Hrs 07/04/17 07/04/17 06:18 06:18 WBC 9.7 RBC 2.30 L Hgb 7.2 L Hct 23.3 L MCV 101.3 H MCH 31.3 MCHC 30.9 L RDW 13.9 RDW Differential 49.1 H Plt Count 202 MPV 10.9 Sodium 141 Potassium 4.0 Chloride 109 H Carbon Dioxide 27.0 Anion Gap 5 BUN 15 Creatinine 0.61 Estim Creat Clear Calc 40.83 Est GFR (MDRD) Af Amer 122 Est GFR (MDRD) Non-Af 101 BUN/Creatinine Ratio 24.5 H Glucose 115 H Calcium 7.7 L Assessment/Plan Active and Suspected Problems Rectal bleeding (Acute) I have been consulted in conjunction with Dr. Mcgill. Dr. Mcgill will independently evaluate this patient Impression: Lower GI bleed Plan: I have discussed this patient with Dr. Mcgill. Dr. Mcgill will plan to perform EGD and colonoscopy with possible biopsies under MAC today. Procedure details, risks, and benefits have been explained to the patient. Patient has had the opportunity to ask and have questions answered. Patient verbally understands and agrees to proceed with the proposed procedure. Patient has been undergoing a bowel prep. Her ASA and Brilinta have been held since yesterday. Restarting anticoagulation will be determined following the scope. Thank you for allowing me to participate in this patient's care. My recommendations will be available via electronic medical records.
--- NOTE | 2017-07-04 10:27 | NURSING ---
Patient had 2 liquid BM's this morning- a stool/ urine mix. Both times contents in hat were maroon in color- small pencil eraser sized clots in first specimen however, no clots observed in second. Patient nauseated this morning at 0930 after blood had been in process for about 30 minutes. She denies any other complaints, including pain, etc. Zofran given and effective.
--- NOTE | 2017-07-04 12:17 | PCM.OPRPT ---
Report of Operation Date of Procedure: 07/04/17 Pre-Operative Diagnosis: GI bleed Post-Operative Diagnosis: Same Surgery/Procedure Performed:: 1. Esophagogastroduodenoscopy. 2. Colonoscopy Type of Anesthesia:: MAC Anesthesiologist: Nahed Johnson Description of Procedure: Patient was brought into the endoscopy suite. Back of her throat was sprayed with Cetacaine spray. Bite-block was placed. She was given graded anesthesia. Scope was inserted in the back of the throat and directed down through the esophagus into the stomach and into the duodenum without difficulty. Operative findings: 1. Duodenum: Normal appearance no mass lesions no ulcerations no bleeding 2. Stomach: Normal appearance no mass lesions no ulcerations no signs of bleeding 3. Esophagus: Normal appearance no mass lesions no signs of bleeding. There did not appear to be any signs of bleeding from her upper scope. No biopsies were taken. Colonoscope was inserted into the rectum. It was directed through the sigmoid colon, descending colon, transverse colon, ascending colon, to the cecum. Operative findings: 1. Cecum: Normal appearance no mass lesions normal ileocecal valve no signs of bleeding 2. Ascending colon: Normal appearance no mass lesions no signs of bleeding 3. Transverse colon: Normal appearance no mass lesions no signs of bleeding 4. Descending colon: Normal appearance signs of old blood in the descending colon no active bleeding was identified minimal diverticular disease was identified 5. Sigmoid colon: Significant diverticular disease significant clotting of blood in this area no signs of active bleeding was identified. 6. Rectum: Clotted blood within the rectum itself no active signs of bleeding. No mass lesions identified. No active bleeding was identified. It looks like this is diverticular in nature and more than likely from the descending or sigmoid colon. If she continues to have a drop in her hemoglobin she will need to be transferred to a tertiary referral center for an active arteriogram to see if they can find an active bleeding source. Given the fact that there was a lot of clotted blood which I try to remove as best that I can and irrigate out the colon is best that I can she is still going to need to have a colonoscopy in a year to make sure that there are no polyps identified. - Admit VTE Documentation VTE Present on Admission: No VTE Mechan Device Prophylaxis: None VTE Pharm Prophylaxis ordered?: No Reason prophylaxis not ordered:: Treatment Not Indicated
[2017-07-04] MEDS: Gabapentin 300 MG Capsule PO ×2 (13:23→17:13)
[2017-07-04] MEDS: Lisinopril 10 MG Tablet PO (13:23)
[2017-07-04] MEDS: Carvedilol 6.25 MG Tablet PO ×2 (13:24→21:06)
[2017-07-04] MEDS: Tolterodine Tartrate 4 MG CAP.SA PO (13:24)
[2017-07-04] MEDS: Citalopram 20 MG Tablet PO (13:24)
--- NOTE | 2017-07-04 13:47 | NURSING ---
Ellie Roman, Jake. paged at this time. Notified that pt remains NPO and is requesting to eat- ok for diet? Also, patient's brillinta was placed on hold and aspirin d/c'ed- would you like restarted? Ellie Roman states that patient may have cardiac/ low cholesterol diet due to hx recent ID starting now. Brillinta was placed on hold for procedure, but Dr. Vora was wanting medication to be resumed today- may resume Brillinta but continue to hold aspirin at this time. [ End ]
--- NOTE | 2017-07-04 13:53 | CASEMGMT ---
GERTRUDE CM Assessment: LULU Strata 3. See attached link for full assessment. Disposition Plan: Home with support of spouse.
--- NOTE | 2017-07-04 15:27 | NURSING ---
Addendum entered by Yadira Rodrigez 07/05/17 08:08: Doctor Vielka was notified yesterday after lab results received- new order for 1 unit PRBC to be given Original Note: This RN called lab at this time and requested for laborer to draw H&H at this time- pt continues bleeding and is bright red at this time and is passing large clots. Awaiting labs to be drawn and then doctor to be notified.
[2017-07-04 15:44] LABS: Hematocrit 25.3 % (37-47)
[2017-07-04] MEDS: TICAGRELOR 90 MG TABLET PO (21:06)
[2017-07-04] MEDS: Atorvastatin Calcium 80 MG Tablet PO (21:06)
[2017-07-04] MEDS: 0.9% Normal Saline 1,000 ML 100 ML IV (22:54)
[2017-07-05] VITALS (13 sets, daily range): BP systolic 135–158; BP diastolic 50–78; PULSE 75–88; RESP 16–18; TEMP 36.6–36.9; O2SAT 86–99
[2017-07-05 06:37] LABS: Absolute Lymphocyte Count 2.16 X10^3/ul (0.83-4.51); Absolute Neutrophil Count 6.2 X10^3/uL (2.0-7.7); Basophil# 0.03 X10^3/uL; Basophil% 0.3 % (0-1); Eosinophil# 0.26 X10^3/uL; Eosinophils% 2.7 % (0-5); Hematocrit 24.2 % (37-47); Hemoglobin 7.7 g/dl (12.0-15.0); Lymphocyte # 2.16 X10^3/ul (4.0); Lymphocyte % 22.2 % (19-41); Mean Corp Hgb Conc 31.8 g/gl (32-36); Mean Corpuscular Hgb 30.7 pg (27.0-32.0); Mean Corpuscular Volume 96.4 fL (81-99); Mean Platelet Vol. 11.2 fl (6.2-12.0); Monocyte# 1.08 X10^3/uL; Monocyte% 11.1 % (0-10); Neutrophil % 63.6 % (47-70); Platelet Count 181 K/mm3 (150-450); RBC Distribution Width SD 52.7 fl (35.1-43.9); Red Blood Count 2.51 M/mm3 (4.2-5.4); White Blood Count 9.7 K/mm3 (4.4-11.0)
[2017-07-05 06:47] LABS: POSITIVE COUNT NO; POSITIVE DIFFERENTIAL NO; POSITIVE MORPHOLOGY NO
--- NOTE | 2017-07-05 07:09 | PCM.PN.SRG ---
Patient Problems: Active and Suspected Problems Rectal bleeding (Acute) Subjective: Patient evaluated resting comfortably in bed. Patient continues to note multiple small clots and bright red blood per rectum. She denies bowel movement since the procedure. Patient's hemoglobin has dropped to 7.7 this morning. Patient did receive 2 units of blood yesterday. She denies abdominal pain/discomfort. - Physical Exam General: Alert, Oriented x3, Cooperative Abdomen: Bowel Sounds Present, Soft, Non Tender, Non-Distended Vital Signs Temp Pulse Resp BP Pulse Ox 98.2 F 75 16 135/50 H 99 07/05/17 02:13 07/05/17 02:13 07/05/17 02:13 07/05/17 02:13 07/05/17 02:13 Oxygen Flow Rate 2 Oxygen Delivery Method Nasal Cannula Weight: 173 lb Body Mass Index (BMI) 30.6 Intake and Output for Last 24 Hours 07/03/17 07/04/17 07/05/17 23:59 23:59 23:59 Intake Total 2558 / 2558 5210 / 5210 814 / 814 Output Total 600 / 600 1000 / 1000 100 / 100 Balance 1957 / 1957 4210 / 4210 714 / 714 Laboratory Tests Past 24 Hrs 07/04/17 07/04/17 07/05/17 15:34 16:40 05:42 WBC 9.7 RBC 2.51 L Hgb 8.0 L 7.7 L Hct 25.3 L 24.2 L MCV 96.4 MCH 30.7 MCHC 31.8 L RDW 15.0 H RDW Differential 52.7 H Plt Count 181 MPV 11.2 Immature Gran % (Auto) 0.100 Neut % (Auto) 63.6 Lymph % (Auto) 22.2 [place] % (Auto) 11.1 H Eos % (Auto) 2.7 Baso % (Auto) 0.3 Absolute Neuts (auto) 6.2 Absolute Lymphs (auto) 2.16 Total Counted Not Reportable Crossmatch See Detail Assessment/Plan Active and Suspected Problems Rectal bleeding (Acute) I am following this patient in conjunction with Dr. Mcgill Lower GI bleed. No active bleeding identified on the colonoscopy yesterday. Patient continues to have bright red blood and dark clots per rectum. Her hemoglobin continues to decrease despite 2 units of blood given yesterday Will discuss patient with Dr. Mcgill Per scope operative report, if patient continued to bleed and have decreased hemoglobin, possible transfer to a tertiary facility may be needed for further evaluation including an arteriogram to determine source of bleeding.
[2017-07-05] MEDS: Albuterol 2.5 MG/3 ML VIAL.NEB. INHALATION ×2 (07:39→13:22)
[2017-07-05] MEDS: Budesonide Respules 0.5 MG/2 ML AMPUL.NEB. INHALATION (07:39)
--- NOTE | 2017-07-05 08:06 | NURSING ---
Dr. Vora to unit after notification of h&h dropping and continuation of bright red bleeding. States that he spoke with the patient and that she is deciding where she would like to be transferred and case management will need to be notified and arrangements made. Will notify case management when arrive.
--- NOTE | 2017-07-05 08:12 | PN_ITS ---
Patient Problems: Active and Suspected Problems Rectal bleeding (Acute) Subjective: Chief complaint: Follow-up after admission for GI bleed and acute blood loss anemia. Patient seen and examined. No acute events overnight. She continued to have active rectal bleeding, large amount with lower abdominal discomfort/cramping. Denied nausea vomiting. Reported intermittent dizziness upon standing. Her vital signs are stable. - Physical Exam General: Alert, Oriented x3, Cooperative, No apparent distress HEENT: Atraumatic, PERRLA, EOMI Oral: Moist Mucosa, No Gingival or Mucosal Lesions/ Ulcerations Neck: Supple, No JVD, Negative Carotid Bruits, Trachea Midline, Thyroid Normal Size and Texture Lungs: Clear to auscultation, No rhonchi, No wheeze, No rales, Diminished Cardiovascular: Regular rate, Regular Rhythm, Normal S1, Normal S2 Abdomen: Bowel Sounds Present, Soft, Non Tender, Non-Distended, No Hepato- splenomegaly Extremities: No clubbing, No cyanosis, No edema Skin: No rashes, No breakdown Lymphatic: No Cervical, Supraclavicular, or Inguinal Adenopathy Neurological: Cranial nerves II-XII grossly intact, Neuro grossly intact Psych/Mental Status: Normal Affect, Appropriate, Alert and oriented to time, place, person, mood and affect Vital Signs Temp Pulse Resp BP Pulse Ox 98.2 F 77 16 135/50 H 99 07/05/17 02:13 07/05/17 07:38 07/05/17 02:13 07/05/17 02:13 07/05/17 02:13 Oxygen Flow Rate 2 Oxygen Delivery Method Nasal Cannula Weight: 173 lb Body Mass Index (BMI) 30.6 Intake and Output for Last 24 Hours 07/03/17 07/04/17 07/05/17 23:59 23:59 23:59 Intake Total 2558 / 2558 5210 / 5210 814 / 814 Output Total 600 / 600 1000 / 1000 100 / 100 Balance 1957 / 1957 4210 / 4210 714 / 714 Laboratory Tests Past 24 Hrs 07/04/17 07/04/17 07/05/17 15:34 16:40 05:42 WBC 9.7 RBC 2.51 L Hgb 8.0 L 7.7 L Hct 25.3 L 24.2 L MCV 96.4 MCH 30.7 MCHC 31.8 L RDW 15.0 H RDW Differential 52.7 H Plt Count 181 MPV 11.2 Immature Gran % (Auto) 0.100 Neut % (Auto) 63.6 Lymph % (Auto) 22.2 [place] % (Auto) 11.1 H Eos % (Auto) 2.7 Baso % (Auto) 0.3 Absolute Neuts (auto) 6.2 Absolute Lymphs (auto) 2.16 Total Counted Not Reportable Crossmatch See Detail Assessment/Plan Active and Suspected Problems Rectal bleeding (Acute) This is a 76 years old female patient presented to the medicine because of rectal bleeding, found to have acute blood loss anemia. #1 GI bleed: Probably lower GI bleed secondary to diverticular bleed. She is still having active rectal bleeding, hemoglobin and hematocrit continued to drop. Patient has been on aspirin and Brilinta since April,. Vital signs stable. She does have acute anemia. Status post colonoscopy and upper EGD. Upper EGD was normal. Colonoscopy reviewed, showed signs of old blood clots on the descending and sigmoid colon as well as rectum without evidence of active bleeding. After discussion with general surgery, will transfer patient to tertiary care center for further management. #2 acute blood loss anemia: Secondary to above. Baseline hemoglobin is normal. Yesterday, she received 1 unit of packed RBCs and hemoglobin went up from 7.2 g/dL up to 8 g/dL. She received another unit of packed RBCs and today's hemoglobin came down to 7.7 g/dL. Plan: Transfuse another unit of packed RBCs, transfer to tertiary care center for further management. #3 CAD status post stents: She had a recent history of NM in April, status post stents. Aspirin held, she is on Brilinta. Pro time and INR were normal as well as platelet count. #4 hypertension: Blood pressure stable, continue current medications. #5 hyperlipidemia: Continue statins. #6 COPD: Stable, pulse ox is normal on 2 L of oxygen. She is on bronchodilators. #7 DVT prophylaxis: SCDs. This note was generated with [employer] software. It may contain incorrect words, spelling, and punctuation that were not noted in checking the note before signing.
[2017-07-05] MEDS: Citalopram 20 MG Tablet PO (09:14)
[2017-07-05] MEDS: Tolterodine Tartrate 4 MG CAP.SA PO (09:14)
[2017-07-05] MEDS: TICAGRELOR 90 MG TABLET PO (09:14)
[2017-07-05] MEDS: Gabapentin 300 MG Capsule PO ×2 (09:14→12:03)
[2017-07-05] MEDS: Lisinopril 10 MG Tablet PO (09:14)
[2017-07-05] MEDS: Carvedilol 6.25 MG Tablet PO (09:15)
[2017-07-05] MEDS: 0.9% NaCl Peripheral Flush Adult/Peds IV (09:39)
--- NOTE | 2017-07-05 14:05 | NURSING ---
called report to [facility] R5 floor and spoke with Hilary at this time.
--- NOTE | 2017-07-05 15:10 | NURSING ---
Tertiary care transfer form signed by Dr. Vora and signed by this RN was sent with ambulance ([facility]) personnel. Did not remember to copy and place in chart at time of departure.
--- NOTE | 2017-07-05 17:52 | PCM.DC.SUM ---
Discharge Date and Diagnosis Date of Admission: 07/03/17 Date of Discharge: 07/05/17 - Primary Discharge Diagnosis #1 acute active lower GI bleed. #2 acute blood loss anemia requiring blood transfusion. - Secondary Discharge Diagnosis Chronic Problems CAD (coronary artery disease) (Chronic) HLD (hyperlipidemia) (Chronic) HTN (hypertension) (Chronic) Chronic respiratory failure with hypoxia and hypercapnia (Chronic) Obesity (BMI 30.0-34.9) (Chronic) Hiatal hernia with gastroesophageal reflux (Chronic) COPD (chronic obstructive pulmonary disease) (Chronic) Osteoarthritis (Chronic) Venous insufficiency of both lower extremities (Chronic) Hospital Course and Treatment Dr. Mcgill, general surgery. Procedures: Colonoscopy, EGD Summary of Care Provided: The patient is a 76 year old F admitted because of bright red rectal bleeding and she was found to have acute blood loss anemia. This GI bleeding attributed to probable diverticular bleed. Patient was on aspirin and Brilinta since April, for history of IN status post stents. She underwent upper EGD that was normal without evidence of masses, ulcers, bleeding or inflammation. Colonoscopy revealed signs of old blood clots on the descending and sigmoid colon as well as rectum without evidence of active bleeding. Patient received a total of 3 units of packed RBCs. In spite of blood transfusion and close monitoring, patient continued to have rectal bleeding and her hemoglobin and hematocrit continued to drop. Aspirin held but she was continued on Brilinta because of recent stents. Her vital signs remained stable. Her other routine blood work was unremarkable. After discussion with surgery, we decided to transfer patient to a tertiary care center for further management. I spoke with the transfer line of [facility] and I spoke with the admitting hospitalist. I discussed the case with him and I suggested further plan with angiography/arteriogram to stop the bleeding and he accepted patient. Patient transferred to [facility] in a stable medical condition. Home Medications: Medications to take at Discharge Citalopram Hydrobromide [Citalopram HBr] 20 mg PO DAILY 03/06/17 Cyclobenzaprine [Flexeril] 5 mg PO DAILY 03/06/17 Dicyclomine HCl [Bentyl] 10 mg PO TIDAC PRN 03/06/17 Gabapentin [Neurontin] 300 mg PO TIDCM 03/06/17 Pantoprazole Sodium [Protonix] 40 mg PO DAILY 03/06/17 Albuterol IH (ProAir) [Proair Hfa (SP)Vent Pts] 2 puff INHALATION Q4H PRN PRN 07/03/17 Aspirin [Aspirin EC] 81 mg PO DAILY 07/03/17 Atorvastatin Calcium [Lipitor] 80 mg PO QHS 07/03/17 Carvedilol 6.25 mg PO BID 07/03/17 Fluticasone/Salmeterol [Advair 500/50 Mcg Diskus] 1 puff INHALATION BID 07/03/17 Hydrocodone Bitart/Apap 5-325 [Chidester 5MG-325MG] 1 tablet PO Q6H PRN PRN 07/03/17 Lisinopril [Zestril] 10 mg PO DAILY 07/03/17 Nitroglycerin [Nitrostat] 0.4 mg SUBLINGUAL Q5M PRN 07/03/17 Ticagrelor [Brilinta] 90 mg PO BID 07/03/17 Tolterodine Tartrate [Tolterodine Tartrate ER] 4 mg PO DAILY 07/03/17 Triamcinolone 0.5% Cream [Triamcinolone Acetonide] 1 applic TOPICAL BID 07/03/17 Primary Care Physician: Care Physician,No Primary [NON-STAFF] - Disposition: Acute care Hospital Minutes spent on discharge:: 32 Patient Condition:: Stable Meaningful Use Info Meaningful Use Diagnoses (Choose all that apply): None applicable Code Visit Inpatient E&M: 17156 Disch Hosp
== END 2017-07-05 14:55 | disposition short-term general hospital (02) | DRG 378 ==
LOC: ED 17:34 → MS2 17:36
PROVIDERS: Family Medicine; Surgery; Admitting Provider Student in an Organized Health Care Education/Training Program; Emergency Provider Emergency Medicine; Family Provider Family Medicine; PCP Family Medicine; Visit Provider Hospitalist
PROC: 0DJD8ZZ Inspection of Lower Intestinal Tract, Via Natural or Artificial Opening Endoscopic (ICD-10-PCS; CPT 45378; principal; 2017-07-04 14:00)
DX: K57.31 Diverticulosis of large intestine without perforation or abscess with bleeding (principal); D62 Acute posthemorrhagic anemia; J96.11 Chronic respiratory failure with hypoxia; Z99.81 Dependence on supplemental oxygen; J96.12 Chronic respiratory failure with hypercapnia; J44.9 Chronic obstructive pulmonary disease, unspecified; I10 Essential (primary) hypertension; E78.5 Hyperlipidemia, unspecified; I25.2 Old myocardial infarction; Z95.5 Presence of coronary angioplasty implant and graft; Z87.891 Personal history of nicotine dependence; E66.9 Obesity, unspecified; Z68.30 Body mass index [BMI] 30.0-30.9, adult; K21.9 Gastro-esophageal reflux disease without esophagitis; K44.9 Diaphragmatic hernia without obstruction or gangrene; M19.90 Unspecified osteoarthritis, unspecified site; I87.2 Venous insufficiency (chronic) (peripheral); I25.10 Atherosclerotic heart disease of native coronary artery without angina pectoris
CPT/HCPCS: 36415; 80048; 85014; 85018; 85025; 85027; 85610; 85730; 86850; 86900; 86920; 93005; 94640; 99285; J7030; J7040; P9016; A4216; J2405

== ENCOUNTER 2017-09-28 10:29 | Inpatient (IN) | payer MEDICARE, OTHER, SELFPAY ==
[2017-09-28] VITALS (12 sets, daily range): BP systolic 108–133; BP diastolic 33–62; PULSE 71–78; RESP 15–21; TEMP 36.4–36.8; O2SAT 91–97; BMI 30.2; BMI 30.3
--- NOTE | 2017-09-28 11:30 | CT_ITS ---
STUDY: CT ABDOMEN AND PELVIS WITHOUT CONTRAST REASON FOR EXAM: Female, 77 years old. History of falls. RADIATION DOSAGE (If Supplied By Facility): CTDIvol = ( 11.14 ) mGy, DLP = ( 473.16 ) mGycm TECHNIQUE: Transaxial images were obtained from the dome of the diaphragm to the symphysis pubis without oral contrast, and without intravenous contrast. Sagittal and coronal images were reconstructed. Individualized dose optimization techniques were used for this CT. COMPARISON: None. FINDINGS: Mild degree of increased markings at the lung bases suggest mild scarring and/or atelectasis. Calcification of the mitral valve annulus. Normal liver. Normal gallbladder and extrahepatic biliary system. Normal spleen. Normal pancreas. There is a small, circumscribed, smooth, low attenuation left adrenal mass, consistent with an adrenal adenoma. It measures 1.5 cm. Normal right adrenal gland. There is a 6.1 cm x 5.9 cm cyst in the inferior medial portion of the right kidney. Normal left kidney. Normal visualized stomach. Normal small intestine. There are multiple colonic diverticula consistent with diverticulosis. The appendix is visualized and appears normal. There is diffuse atherosclerotic calcification of the abdominal aorta and its major visceral branches, without a demonstrated aneurysm. Normal inferior vena cava. Normal retroperitoneum. Normal urinary bladder. Prior ventral hernia repair with a mesh. There are diffuse degenerative changes of the visualized lumbar spine. Prior laminectomy and interpedicular screw fixation at the L4-L5 and L5-S1 levels. CT/Abdomen/Pelvis without Cont IMPRESSION: Sigmoid diverticulosis. 1.5 cm hypodense nodule in the left adrenal gland most likely secondary to adenoma. Right renal cyst. Electronically Signed: Navid Langston MD at 13:30 EDT Tel [phone], Service support ,
[2017-09-28] MEDS: Ipratropium/Albuterol Sulfate 3 ML AMPUL.NEB INHALATION (11:35)
[2017-09-28] MEDS: Albuterol 2.5 MG/3 ML VIAL.NEB. INHALATION ×4 (11:47→18:47)
[2017-09-28 12:05] LABS: Absolute Lymphocyte Count 1.35 X10^3/ul (0.83-4.51); Basophil# 0.04 X10^3/uL; Basophil% 0.4 % (0-1); Eosinophil# 0.23 X10^3/uL; Eosinophils% 2.4 % (0-5); Hematocrit 35.3 % (37-47); Hemoglobin 10.7 g/dl (12.0-15.0); Lymphocyte # 1.35 X10^3/ul (4.0); Lymphocyte % 13.9 % (19-41); Mean Corp Hgb Conc 30.3 g/gl (32-36); Mean Corpuscular Hgb 29.2 pg (27.0-32.0); Mean Corpuscular Volume 96.4 fL (81-99); Mean Platelet Vol. 11.3 fl (6.2-12.0); Monocyte# 1.12 X10^3/uL; Monocyte% 11.5 % (0-10); Neutrophil # 6.97 X10^3/uL (2.7-7.7); Neutrophil % 71.6 % (47-70); Platelet Count 288 K/mm3 (150-450); RBC Distribution Width CV 15.7 % (11.6-14.6); RBC Distribution Width SD 53.5 fl (35.1-43.9); Red Blood Count 3.66 M/mm3 (4.2-5.4); White Blood Count 9.7 K/mm3 (4.4-11.0)
[2017-09-28 12:06] LABS: POSITIVE COUNT NO; POSITIVE DIFFERENTIAL NO; POSITIVE MORPHOLOGY NO
[2017-09-28 12:31] LABS: Anion Gap 9 (5-15); BUN 50 mg/dL (7-18); BUN/Creat Ratio 18.9 RATIO (10-20); Calcium,Total 8.5 mg/dL (8.5-10.1); Chloride 103 mmol/L (98-107); Creatinine, Serum 2.65 mg/dL (0.55-1.02); EST Glomerular Filtration Rate 19 mL/min (>60); Est Glom Filt Rate - Afr Amer 23 mL/min (>60); Estimated Creatinine Clearance 15.17 ml/min; Glucose 114 mg/dL (74-106); Potassium 4.9 mmol/L (3.5-5.1); Sodium Level 142 mmol/L (136-145)
--- NOTE | 2017-09-28 12:51 | RAD_ITS ---
STUDY: X-RAY - UNILATERAL RIBS ( LEFT ) WITH CHEST REASON FOR EXAM: Female, 77 years old. Pain following a fall. TECHNIQUE - RIBS: 2 view(s) of the ribs. TECHNIQUE - CHEST: Single PA view of the chest. COMPARISON: Comparison is made with prior chest radiograph dated March 06, 2017. FINDINGS - RIBS: Normal visualized ribs without a demonstrated fracture. FINDINGS - CHEST: EKG electrodes are seen. The lungs are clear and expanded. There is no demonstrated pleural abnormality. Normal size heart. Normal mediastinum and jazlyn. Normal visualized pulmonary arteries. There is atherosclerotic calcification of the aortic arch with tortuosity. There are diffuse degenerative changes of the visualized thoracic spine. There is degenerative osteoarthritis of the bilateral shoulders. Prior right rotator cuff surgery. There is no demonstrated abnormality of the visualized soft tissue structures of the upper abdomen. RAD/Ribs Uni Min 3V w/PA Chest IMPRESSION: RIBS: Normal x-ray examination of the ribs. CHEST: No acute abnormality is seen. Electronically Signed: Navid Langston MD at 13:31 EDT Tel [phone], Service support ,
--- NOTE | 2017-09-28 14:14 | ED.DCSUM_ITS ---
- ER Visit Summary Date of Service: 09/28/17 Chief Complaint: [Fall] History of Present Illness: The patient is a 77 F [who presents to the emergency department after a fall. She states she was using her walker she is not sure what happened she just lost her balance and fell. She landed on her left side. She is complaining of left abdominal pain and rib pain. She feels short of breath after the fall. She is been generally weak. She is a history of COPD and wears home O2. She also has coronary artery disease. She is a poor historian.] Physical Examination: [] Pulse ox 91% on 3 L NC AT PERRL EOMI MIDFACE STABLE NO DENTAL TRAUMA NECK NONTENDER, FROM WITHOUT PAIN RRR NO MURMURS, RUBS, OR GALLOPS CTAB, CHEST tenderness to palpation on the left lower anterior chest no crepitus or subcutaneous emphysema, NO BRUISING ABDOMEN SOFT LEFT UPPER AND LOWER ABDOMEN NORMAL BOWEL SOUNDS, NO ECCHYMOSIS EXTREMITIES WITH NO DEFORMITY, SWELLING OR ECCHYMOSIS, NVIT X4 CRANIAL NERVES IN TACT, NO MOTOR SENSORY DEFICITS BACK WITH NO MIDLINE TENDERNESS SKIN NORMAL, NO ABRASIONS OR LACERATIONS Test Results: [] Emergency Department Course and Treatment: [Screening labs were obtained and creatinine was fine found to be 2.77. It is unclear the cause however she had a normal creatinine a couple months ago. She states her urine has been abnormal but cannot clearly describe this. She does appear to be dry and was given fluids. While in the emergency department she started complaining of lower substernal chest pain. EKG was obtained at that time and was sinus at 83 with no acute ischemic changes. She was given aspirin. Given her acute renal failure her chest pain and her rib injury with COPD I do think she requires admission.] Treatment Plan: [] Disposition: [Admit] Impression: [Acute kidney injury 2. Left chest wall injury 3. Chest pain] This note was generated with [employer] dictation software. It may contain incorrect words, spelling, and punctuation that were not noted in review of the chart prior to signing ED Disposition - Plan for ED Patient: Chief Complaint: Fall Referrals: Amilcar Mahoney [Primary Care Provider] -
--- NOTE | 2017-09-28 14:29 | NURSING ---
103 CP, FALL GREGG
[2017-09-28] MEDS: Aspirin 81 MG TAB.CHEW 324 MG PO (14:48)
[2017-09-28] MEDS: 0.9% Normal Saline 1,000 ML 1000 ML IV (14:48)
--- NOTE | 2017-09-28 14:48 | PCM.HP.STD ---
Problem List (1) Atypical chest pain Status: Acute (2) Acute on recurrent fall Status: Acute (3) Adult failure to thrive Status: Acute (4) TIA on medication Status: Resolved (5) ulnar nerve surgery Status: Resolved (6) History of tonsillectomy Status: Resolved (7) History of knee replacement, total Status: Resolved Comment: left (8) H/O: hysterectomy Status: Resolved (9) FH: cholecystectomy Status: Resolved (10) Status post angioplasty with stent Status: Resolved Comment: [facility] 03/07/17, severe Lt main CAD, transfer to [facility], Had stent to left main (11) Atherosclerotic heart disease of [place] coronary artery without angina pectoris Status: Chronic (12) Non-ST elevation (NSTEMI) myocardial infarction Status: Resolved Comment: 03/06/17 (13) Rectal bleeding Status: Acute (14) CAD (coronary artery disease) Status: Chronic (15) HLD (hyperlipidemia) Status: Chronic (16) HTN (hypertension) Status: Chronic (17) Chronic respiratory failure with hypoxia and hypercapnia Status: Chronic (18) Obesity (BMI 30.0-34.9) Status: Chronic (19) Hiatal hernia with gastroesophageal reflux Status: Chronic (20) COPD (chronic obstructive pulmonary disease) Status: Chronic (21) Osteoarthritis Status: Chronic (22) Venous insufficiency of both lower extremities Status: Chronic (23) Chronic diastolic heart failure Status: Chronic History of Present Illness Date of Admission: 09/28/17 Chief Complaint: chest pain and recurrent fall The patient is a 77 year old female who was brought in by EMS for recurrent fall, 2 times last night, generalized shakiness and weakness. She normally uses walker and is on 3 L of home oxygen due to chronic hypoxic respiratory failure because of COPD. She also has coronary artery disease and she had cath in February 2017 and was found left main with large ulcerated plaque with 50-80% stenosis. 2D echo at that time showed EF 60% with mild LVH with no significant valvular heart disease. Patient had multiple falls, most recent last 2 times last night when she fell on her lower back in the middle. She also has left rotator cuff tear about a week ago and was left sling found by EMS. While in the ER, she complained of right lower chest pain, 8/10 intensity sharp with no associated change in her breathing, diaphoresis, radiation, near syncope or syncope. EKG shows normal sinus rhythm with nonspecific ST-T changes. In ER, she was also found to have acute kidney injury, creatinine 2.65, BUN 50 with baseline CKD stage III estimated GFR 40 mL/min] Past Medical History Past Medical History (Chronic Problems): Chronic Problems (Last Updated 08/31/17 @ 12:57 by Dariela Smith) Chronic diastolic heart failure (Chronic) Atherosclerotic heart disease of [place] coronary artery without angina pectoris (Chronic) CAD (coronary artery disease) (Chronic) HLD (hyperlipidemia) (Chronic) HTN (hypertension) (Chronic) Chronic respiratory failure with hypoxia and hypercapnia (Chronic) Obesity (BMI 30.0-34.9) (Chronic) Hiatal hernia with gastroesophageal reflux (Chronic) COPD (chronic obstructive pulmonary disease) (Chronic) Osteoarthritis (Chronic) Venous insufficiency of both lower extremities (Chronic) Allergies codeine Adverse Reaction (Verified 07/03/17 16:07) Upset Stomach Home Medications: Ambulatory Orders Medication Instructions Recorded Citalopram Hydrobromide 20 mg PO DAILY 03/06/17 [Citalopram HBr] Cyclobenzaprine [Flexeril] 5 mg PO DAILY 03/06/17 Dicyclomine HCl [Bentyl] 10 mg PO TIDAC PRN 03/06/17 Gabapentin [Neurontin] 300 mg PO TIDCM 03/06/17 Pantoprazole Sodium [Protonix] 40 mg PO DAILY 03/06/17 Albuterol IH (ProAir) [Proair Hfa 2 puff INHALATION Q4H PRN PRN 07/03/17 (SP)Vent Pts] Aspirin [Aspirin EC] 81 mg PO DAILY 07/03/17 Atorvastatin Calcium [Lipitor] 80 mg PO QHS 07/03/17 Carvedilol 6.25 mg PO BID 07/03/17 Fluticasone/Salmeterol [Advair 1 puff INHALATION BID 07/03/17 500/50 Mcg Diskus] Hydrocodone Bitart/Apap 5-325 1 tab PO Q6H PRN PRN 07/03/17 [[place] 5MG-325MG] Lisinopril [Zestril] 10 mg PO DAILY 07/03/17 Nitroglycerin [Nitrostat] 0.4 mg SUBLINGUAL Q5M PRN 07/03/17 Tolterodine Tartrate [Tolterodine 4 mg PO DAILY 07/03/17 Tartrate ER] Triamcinolone 0.5% Cream 1 applic TOPICAL BID 07/03/17 [Triamcinolone Acetonide] Surgical History: cholecystectomy, hysterectomy - With bilateral oophorectomy for an abnormal ovary. 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 Psychiatric History: No pertinent psych hx PARTITION NOTCHER History: No pertinent PARTITION NOTCHER history Smoking Status: Former smoker - *Family History Maternal History Items: - - denies any hx of CAD Paternal History Items: Heart Disease - in her father at 60 YOA Review of Systems Constitutional: Reports: Malaise, Fatigue. Denies: Chills, Fever, Weight Change HEENT: Denies: Head Aches, Sinus Congestion, Sinus Drainage Cardiovascular: Reports: Chest Pain. Denies: Palpitations Respiratory: Reports: Shortness of breath upon exertion. Denies: Cough, Shortness of breath at rest, Sputum production Gastrointestinal: Denies: Abdominal Pain, Nausea, Vomiting Genitourinary: Denies: Dysuria Musculoskeletal: Reports: Joint Pain, Joint stiffness, Joint swelling, Joint Tenderness Skin: Denies: Rash, Wounds Neurological: Reports: Balance problems. Denies: Focal weakness, Numbness, Tingling Psychiatric: Denies: Anxiety, Depression, Homicidal Ideations, Suicidal Ideations Hematologic/ Lymphatic: Denies: Easy Bruising, Easy Bleeding VTE Information - Inpt Only VTE Present on Admission: No VTE Mechan Device Prophylaxis: SCD's VTE Pharm Prophylaxis ordered?: No Reason prophylaxis not ordered:: Medical Contraindication - History of recent severe GI bleed Patient Problems: Active and Suspected Problems (Last Updated 08/31/17 @ 12:57 by Dariela Smith) Atypical chest pain (Acute) Acute on recurrent fall (Acute) Adult failure to thrive (Acute) - Physical Exam General: Alert, Oriented x3, Cooperative HEENT: Atraumatic, PERRLA, EOMI, Normocephalic Oral: Dry Mucosa Neck: Supple, No JVD, Negative Carotid Bruits Lungs: Clear to auscultation, No rhonchi, No wheeze, Diminished Cardiovascular: Regular rate, Regular Rhythm, Normal S1, Normal S2, No murmurs Abdomen: Bowel Sounds Present, Soft, Non Tender, Non-Distended Extremities: No edema, Capillary Refill Less than 3 Seconds Skin: No rashes, No breakdown Musculoskeletal: Arthritic Changes, Tenderness - Tenderness over lower back. Tenderness over left rotator cuff region Neurological: Cranial nerves II-XII grossly intact Psych/Mental Status: Normal Affect, Appropriate Vital Signs Temp Pulse Resp BP Pulse Ox 97.5 F L 77 15 119/58 L 95 09/28/17 10:30 09/28/17 14:36 09/28/17 14:36 09/28/17 14:36 09/28/17 14:36 Assessment/Plan Active and Suspected Problems (Last Updated 08/31/17 @ 12:57 by Dariela Smith) Atypical chest pain (Acute) Acute on recurrent fall (Acute) Adult failure to thrive (Acute) The patient is a 77 year old female who was brought in by EMS for recurrent fall, 2 times last night, generalized shakiness and weakness. She normally uses walker and is on 3 L of home oxygen due to chronic hypoxic respiratory failure because of COPD. She also has coronary artery disease and she had cath in February 2017 and was found left main with large ulcerated plaque with 50-80% stenosis. 2D echo at that time showed EF 60% with mild LVH with no significant valvular heart disease. Patient had multiple falls, most recent last 2 times last night when she fell on her lower back in the middle. She also has left rotator cuff tear about a week ago and was left sling found by EMS. While in the ER, she complained of right lower chest pain, 8/10 intensity sharp with no associated change in her breathing, diaphoresis, radiation, near syncope or syncope. EKG shows normal sinus rhythm with nonspecific ST-T changes. In ER, she was also found to have acute kidney injury, creatinine 2.65, BUN 50 with baseline CKD stage III estimated GFR 40 mL/min. 1. Atypical right costal margin rib pain/chest pain: Patient is being admitted in PCU. I think it is most probably her rib pain/costochondritis pain: In view of history of left main ulcerated plaque with 50-80% stenosis, serial cardiac enzymes are ordered. Stress test was not ordered as the patient had cardiac cath in February 2017. If further concern, can consult Dr. dial. 2. Acute on recurrent fall with adult failure to thrive: PT and OT evaluation. Patient does not want SNF placement. Patient is on walker at home. 3. Acute kidney injury most probably prerenal with azotemia on CKD stage III: IV fluid normal saline 1 L bolus ordered in ER and then 500 mL bolus for 2 hours and then 100 mL/h. Measure electrolytes and kidney function. Monitor intake/output. 4. COPD with chronic hypoxic respiratory failure: Patient at home her baseline oxygen requirement is 3 L/min. No change. 5. Coronary artery disease with left main ulcerated plaque, single-vessel disease: She had 2D echo and cardiac cath in February 2017 as mentioned above. Continue her cardiac medications 6. Recent lower GI bleed in June 2017: He was transferred to [facility] in February 2018 for severe lower GI bleed for which she required 3 units of PRBC colonoscopy done at that time showed old blood clots in descending sigmoid colon without evidence of active bleeding. On PPI DVT prophylaxis, moderate risk. Fecal for occult blood is ordered. Bilateral SCDs. I will hold on pharmacological prophylaxis in view of Recent severe GI bleeding history. CT abdomen done this time shows sigmoid diverticulosis Advanced directive: Goal of life care, advanced directive discussed with the patient. She does not want artificial life support including CPR, intubation, ventilator and she said if an time comes, let her go. Different options including full code, DNR CC arrest and DNR CC given. Patient expressed for DNR CC arrest. Total time spent in [id number] encounter and discussion with advanced life directive: 17 minutes Clinical Impression(s) from Imaging Studies Abdomen/Pelvis CT 09/28/17 11:30 IMPRESSION: Sigmoid diverticulosis. 1.5 cm hypodense nodule in the left adrenal gland most likely secondary to adenoma. Right renal cyst. Ribs w/Chest X-Ray 09/28/17 12:51 IMPRESSION: RIBS: Normal x-ray examination of the ribs. CHEST: No acute abnormality is seen. Laboratory Results 09/28/17 11:47: WBC 9.7, RBC 3.66 L, Hgb 10.7 L, Hct 35.3 L, MCV 96.4, MCH 29.2, MCHC 30.3 L, RDW 15.7 H, RDW Differential 53.5 H, Plt Count 288, MPV 11.3, Immature Gran % (Auto) 0.200, Neut % (Auto) 71.6 H, Lymph % (Auto) 13.9 L, [place] % (Auto) 11.5 H, Eos % (Auto) 2.4, Baso % (Auto) 0.4, Absolute Neuts (auto) 7.0, Absolute Lymphs (auto) 1.35, Total Counted Not Reportable 09/28/17 11:47: Sodium 142, Potassium 4.9, Chloride 103, Carbon Dioxide 30.0, Anion Gap 9, BUN 50 H, Creatinine 2.65 H, Estim Creat Clear Calc 15.17, Est GFR (MDRD) Af Amer 23 L, Est GFR (MDRD) Non-Af 19 L, BUN/Creatinine Ratio 18.9, Glucose 114 H, Calcium 8.5 09/28/17 11:47: Troponin I < 0.015 Code Visit Inpatient E&M: 10784 Init Hosp L3 Procedures: 53569 Advncd Care Plan 30 Min
--- NOTE | 2017-09-28 14:51 | HP.PCM_ITS ---
Problem List (1) Atypical chest pain Status: Acute (2) Acute on recurrent fall Status: Acute (3) Adult failure to thrive Status: Acute (4) TIA on medication Status: Resolved (5) ulnar nerve surgery Status: Resolved (6) History of tonsillectomy Status: Resolved (7) History of knee replacement, total Status: Resolved Comment: left (8) H/O: hysterectomy Status: Resolved (9) FH: cholecystectomy Status: Resolved (10) Status post angioplasty with stent Status: Resolved Comment: [facility] 03/07/17, severe Lt main CAD, transfer to [facility], Had stent to left main (11) Atherosclerotic heart disease of [place] coronary artery without angina pectoris Status: Chronic (12) Non-ST elevation (NSTEMI) myocardial infarction Status: Resolved Comment: 03/06/17 (13) Rectal bleeding Status: Acute (14) CAD (coronary artery disease) Status: Chronic (15) HLD (hyperlipidemia) Status: Chronic (16) HTN (hypertension) Status: Chronic (17) Chronic respiratory failure with hypoxia and hypercapnia Status: Chronic (18) Obesity (BMI 30.0-34.9) Status: Chronic (19) Hiatal hernia with gastroesophageal reflux Status: Chronic (20) COPD (chronic obstructive pulmonary disease) Status: Chronic (21) Osteoarthritis Status: Chronic (22) Venous insufficiency of both lower extremities Status: Chronic (23) Chronic diastolic heart failure Status: Chronic History of Present Illness Date of Admission: 09/28/17 Chief Complaint: chest pain and recurrent fall The patient is a 77 year old female who was brought in by EMS for recurrent fall , 2 times last night, generalized shakiness and weakness. She normally uses walker and is on 3 L of home oxygen due to chronic hypoxic respiratory failure because of COPD. She also has coronary artery disease and she had cath in February 2017 and was found left main with large ulcerated plaque with 50-80% stenosis. 2D echo at that time showed EF 60% with mild LVH with no significant valvular heart disease. Patient had multiple falls, most recent last 2 times last night when she fell on her lower back in the middle. She also has left rotator cuff tear about a week ago and was left sling found by EMS. While in the ER, she complained of right lower chest pain, 8/10 intensity sharp with no associated change in her breathing, diaphoresis, radiation, near syncope or syncope. EKG shows normal sinus rhythm with nonspecific ST-T changes. In ER, she was also found to have acute kidney injury, creatinine 2.65, BUN 50 with baseline CKD stage III estimated GFR 40 mL/min] Past Medical History Past Medical History (Chronic Problems): Chronic Problems (Last Updated 08/31/17 @ 12:57 by Dariela Smith) Chronic diastolic heart failure (Chronic) Atherosclerotic heart disease of [place] coronary artery without angina pectoris (Chronic) CAD (coronary artery disease) (Chronic) HLD (hyperlipidemia) (Chronic) HTN (hypertension) (Chronic) Chronic respiratory failure with hypoxia and hypercapnia (Chronic) Obesity (BMI 30.0-34.9) (Chronic) Hiatal hernia with gastroesophageal reflux (Chronic) COPD (chronic obstructive pulmonary disease) (Chronic) Osteoarthritis (Chronic) Venous insufficiency of both lower extremities (Chronic) Allergies codeine Adverse Reaction (Verified 07/03/17 16:07) Upset Stomach Home Medications: Ambulatory Orders Medication Instructions Recorded Citalopram Hydrobromide 20 mg PO DAILY 03/06/17 [Citalopram HBr] Cyclobenzaprine [Flexeril] 5 mg PO DAILY 03/06/17 Dicyclomine HCl [Bentyl] 10 mg PO TIDAC PRN 03/06/17 Gabapentin [Neurontin] 300 mg PO TIDCM 03/06/17 Pantoprazole Sodium [Protonix] 40 mg PO DAILY 03/06/17 Albuterol IH (ProAir) [Proair Hfa 2 puff INHALATION Q4H PRN PRN 07/03/17 (SP)Vent Pts] Aspirin [Aspirin EC] 81 mg PO DAILY 07/03/17 Atorvastatin Calcium [Lipitor] 80 mg PO QHS 07/03/17 Carvedilol 6.25 mg PO BID 07/03/17 Fluticasone/Salmeterol [Advair 1 puff INHALATION BID 07/03/17 500/50 Mcg Diskus] Hydrocodone Bitart/Apap 5-325 1 tab PO Q6H PRN PRN 07/03/17 [[place] 5MG-325MG] Lisinopril [Zestril] 10 mg PO DAILY 07/03/17 Nitroglycerin [Nitrostat] 0.4 mg SUBLINGUAL Q5M PRN 07/03/17 Tolterodine Tartrate [Tolterodine 4 mg PO DAILY 07/03/17 Tartrate ER] Triamcinolone 0.5% Cream 1 applic TOPICAL BID 07/03/17 [Triamcinolone Acetonide] Surgical History: cholecystectomy, hysterectomy - With bilateral oophorectomy for an abnormal ovary. 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 Psychiatric History: No pertinent psych hx CIGAR HEAD HOLER History: No pertinent CIGAR HEAD HOLER history Smoking Status: Former smoker - *Family History Maternal History Items: - - denies any hx of CAD Paternal History Items: Heart Disease - in her father at 60 YOA Review of Systems Constitutional: Reports: Malaise, Fatigue. Denies: Chills, Fever, Weight Change HEENT: Denies: Head Aches, Sinus Congestion, Sinus Drainage Cardiovascular: Reports: Chest Pain. Denies: Palpitations Respiratory: Reports: Shortness of breath upon exertion. Denies: Cough, Shortness of breath at rest, Sputum production Gastrointestinal: Denies: Abdominal Pain, Nausea, Vomiting Genitourinary: Denies: Dysuria Musculoskeletal: Reports: Joint Pain, Joint stiffness, Joint swelling, Joint Tenderness Skin: Denies: Rash, Wounds Neurological: Reports: Balance problems. Denies: Focal weakness, Numbness, Tingling Psychiatric: Denies: Anxiety, Depression, Homicidal Ideations, Suicidal Ideations Hematologic/ Lymphatic: Denies: Easy Bruising, Easy Bleeding VTE Information - Inpt Only VTE Present on Admission: No VTE Mechan Device Prophylaxis: SCD's VTE Pharm Prophylaxis ordered?: No Reason prophylaxis not ordered:: Medical Contraindication - History of recent severe GI bleed Patient Problems: Active and Suspected Problems (Last Updated 08/31/17 @ 12:57 by Dariela Smith) Atypical chest pain (Acute) Acute on recurrent fall (Acute) Adult failure to thrive (Acute) - Physical Exam General: Alert, Oriented x3, Cooperative HEENT: Atraumatic, PERRLA, EOMI, Normocephalic Oral: Dry Mucosa Neck: Supple, No JVD, Negative Carotid Bruits Lungs: Clear to auscultation, No rhonchi, No wheeze, Diminished Cardiovascular: Regular rate, Regular Rhythm, Normal S1, Normal S2, No murmurs Abdomen: Bowel Sounds Present, Soft, Non Tender, Non-Distended Extremities: No edema, Capillary Refill Less than 3 Seconds Skin: No rashes, No breakdown Musculoskeletal: Arthritic Changes, Tenderness - Tenderness over lower back. Tenderness over left rotator cuff region Neurological: Cranial nerves II-XII grossly intact Psych/Mental Status: Normal Affect, Appropriate Vital Signs Temp Pulse Resp BP Pulse Ox 97.5 F L 77 15 119/58 L 95 09/28/17 10:30 09/28/17 14:36 09/28/17 14:36 09/28/17 14:36 09/28/17 14:36 Assessment/Plan Active and Suspected Problems (Last Updated 08/31/17 @ 12:57 by Dariela Smith) Atypical chest pain (Acute) Acute on recurrent fall (Acute) Adult failure to thrive (Acute) The patient is a 77 year old female who was brought in by EMS for recurrent fall , 2 times last night, generalized shakiness and weakness. She normally uses walker and is on 3 L of home oxygen due to chronic hypoxic respiratory failure because of COPD. She also has coronary artery disease and she had cath in February 2017 and was found left main with large ulcerated plaque with 50-80% stenosis. 2D echo at that time showed EF 60% with mild LVH with no significant valvular heart disease. Patient had multiple falls, most recent last 2 times last night when she fell on her lower back in the middle. She also has left rotator cuff tear about a week ago and was left sling found by EMS. While in the ER, she complained of right lower chest pain, 8/10 intensity sharp with no associated change in her breathing, diaphoresis, radiation, near syncope or syncope. EKG shows normal sinus rhythm with nonspecific ST-T changes. In ER, she was also found to have acute kidney injury, creatinine 2.65, BUN 50 with baseline CKD stage III estimated GFR 40 mL/min. 1. Atypical right costal margin rib pain/chest pain: Patient is being admitted in PCU. I think it is most probably her rib pain/costochondritis pain: In view of history of left main ulcerated plaque with 50-80% stenosis, serial cardiac enzymes are ordered. Stress test was not ordered as the patient had cardiac cath in February 2017. If further concern, can consult Dr. dial. 2. Acute on recurrent fall with adult failure to thrive: PT and OT evaluation. Patient does not want SNF placement. Patient is on walker at home. 3. Acute kidney injury most probably prerenal with azotemia on CKD stage III: IV fluid normal saline 1 L bolus ordered in ER and then 500 mL bolus for 2 hours and then 100 mL/h. Measure electrolytes and kidney function. Monitor intake/output. 4. COPD with chronic hypoxic respiratory failure: Patient at home her baseline oxygen requirement is 3 L/min. No change. 5. Coronary artery disease with left main ulcerated plaque, single-vessel disease: She had 2D echo and cardiac cath in February 2017 as mentioned above. Continue her cardiac medications 6. Recent lower GI bleed in June 2017: He was transferred to [facility] in February 2018 for severe lower GI bleed for which she required 3 units of PRBC colonoscopy done at that time showed old blood clots in descending sigmoid colon without evidence of active bleeding. On PPI DVT prophylaxis, moderate risk. Fecal for occult blood is ordered. Bilateral SCDs. I will hold on pharmacological prophylaxis in view of Recent severe GI bleeding history. CT abdomen done this time shows sigmoid diverticulosis Advanced directive: Goal of life care, advanced directive discussed with the patient. She does not want artificial life support including CPR, intubation, ventilator and she said if an time comes, let her go. Different options including full code, DNR CC arrest and DNR CC given. Patient expressed for DNR CC arrest. Total time spent in [id number] encounter and discussion with advanced life directive: 17 minutes Clinical Impression(s) from Imaging Studies Abdomen/Pelvis CT 09/28/17 11:30 IMPRESSION: Sigmoid diverticulosis. 1.5 cm hypodense nodule in the left adrenal gland most likely secondary to adenoma. Right renal cyst. Ribs w/Chest X-Ray 09/28/17 12:51 IMPRESSION: RIBS: Normal x-ray examination of the ribs. CHEST: No acute abnormality is seen. Laboratory Results 09/28/17 11:47: WBC 9.7, RBC 3.66 L, Hgb 10.7 L, Hct 35.3 L, MCV 96.4, MCH 29.2 , MCHC 30.3 L, RDW 15.7 H, RDW Differential 53.5 H, Plt Count 288, MPV 11.3, Immature Gran % (Auto) 0.200, Neut % (Auto) 71.6 H, Lymph % (Auto) 13.9 L, [place] % (Auto) 11.5 H, Eos % (Auto) 2.4, Baso % (Auto) 0.4, Absolute Neuts (auto) 7.0 , Absolute Lymphs (auto) 1.35, Total Counted Not Reportable 09/28/17 11:47: Sodium 142, Potassium 4.9, Chloride 103, Carbon Dioxide 30.0, Anion Gap 9, BUN 50 H, Creatinine 2.65 H, Estim Creat Clear Calc 15.17, Est GFR (MDRD) Af Amer 23 L, Est GFR (MDRD) Non-Af 19 L, BUN/Creatinine Ratio 18.9, Glucose 114 H, Calcium 8.5 09/28/17 11:47: Troponin I < 0.015 Code Visit Inpatient E&M: 39019 Init Hosp L3 Procedures: 38980 Advncd Care Plan 30 Min
--- NOTE | 2017-09-28 15:00 | CASEMGMT ---
Social Work Note In to complete initial assessment. Introduced self and role at [facility]. Reports to live with her in a one-story home with 2 DARA and denies access issues. DME consists of a walker, cane and oxygen. Pt uses both her walker and cane at her baseline. Oxygen is through [facility]. Pt reports to be independent with ADLs, but does not drive. Denies having advanced directives. RN to transport pt to PCU, and pt requests that someone explore this option with her on assigned unit. Pt anticipates returning home at discharge. RN CM to follow for discharge planning. Susy Anderson, CASING PULLER, FRANCHISE DEVELOPMENT MANAGER
--- NOTE | 2017-09-28 15:06 | EKG12_ITS ---
Test Reason : CP Blood Pressure : / mmHG Vent. Rate : 074 BPM Atrial Rate : 074 BPM P-R Int : 166 ms QRS Dur : 090 ms QT Int : 418 ms P-R-T Axes : 075 002 045 degrees QTc Int : 463 ms Normal sinus rhythm Normal ECG When compared with ECG of 28-SEP-2017 15:13, MANUAL COMPARISON REQUIRED, DATA IS UNCONFIRMED Confirmed by INDRA STEVENSON, JAJA ([id number]), book or script editor BERNARD WOOD ([id number]) on 10/03/2017 3:06:13 PM Referred By: DR. ESCOBEDO Confirmed By:JAJA BURRELL MD
[2017-09-28 15:44] LABS: AST(SGOT) 47 U/L (15-37); Alanine Aminotransfer ALT/SGPT 35 U/L (13-56); Albumin, Serum 2.9 g/dL (3.2-5.0); Alkaline Phosphatase 177 U/L (45-117); Bilirubin, Direct 0.12 mg/dL (0.00-0.30); Globulin 4.5 g/dL (2.2-4.2); Magnesium 2.4 mg/dL (1.6-2.6); Protein, Total 7.4 g/dL (6.4-8.2)
[2017-09-28] MEDS: Gabapentin 300 MG Capsule PO (16:15)
[2017-09-28] MEDS: 0.9% Normal Saline 1,000 ML 999 ML IV (16:15)
--- NOTE | 2017-09-28 18:38 | EKG12_ITS ---
Test Reason : Blood Pressure : / mmHG Vent. Rate : 072 BPM Atrial Rate : 072 BPM P-R Int : 166 ms QRS Dur : 090 ms QT Int : 418 ms P-R-T Axes : 077 003 054 degrees QTc Int : 457 ms Normal sinus rhythm Normal ECG Confirmed by JAJA BURRELL MD ([id number]), staff editor BERNARD WOOD ([id number]) on 09/30/2017 1:33:57 PM Referred By: BESSY Confirmed By:JAJA BURRELL MD
[2017-09-28] MEDS: Budesonide Respules 0.5 MG/2 ML AMPUL.NEB. INHALATION (18:47)
[2017-09-28] MEDS: Carvedilol 6.25 MG Tablet PO (21:23)
[2017-09-28] MEDS: Triamcinolone 0.5% Cream 1 APPLIC TOPICAL (21:23)
[2017-09-28] MEDS: Atorvastatin Calcium 80 MG Tablet PO (21:23)
[2017-09-29] VITALS (8 sets, daily range): BP systolic 129–151; BP diastolic 45–69; PULSE 65–76; RESP 16–18; TEMP 36.5–37.7; O2SAT 94–96
[2017-09-29] MEDS: Acetaminophen 325 MG Tablet 650 MG PO (01:35)
--- NOTE | 2017-09-29 02:53 | EKG12_ITS ---
Test Reason : CP Blood Pressure : / mmHG Vent. Rate : 073 BPM Atrial Rate : 073 BPM P-R Int : 160 ms QRS Dur : 090 ms QT Int : 408 ms P-R-T Axes : 076 005 041 degrees QTc Int : 449 ms Normal sinus rhythm Normal ECG When compared with ECG of 28-SEP-2017 18:43, MANUAL COMPARISON REQUIRED, DATA IS UNCONFIRMED Confirmed by INDRA STEVENSON, JAJA ([id number]), editor & co founder BERNARD WOOD ([id number] on 09/30/2017 3:06:59 PM Referred By: DR ESCOBEDO Confirmed By:JAJA BURRELL MD
[2017-09-29] MEDS: Budesonide Respules 0.5 MG/2 ML AMPUL.NEB. INHALATION (06:48)
[2017-09-29] MEDS: Albuterol 2.5 MG/3 ML VIAL.NEB. INHALATION (06:48)
[2017-09-29 06:51] LABS: Albumin, Serum 2.3 g/dL (3.2-5.0); BUN 39 mg/dL (7-18); BUN/Creat Ratio 28.7 RATIO (10-20); Chloride 108 mmol/L (98-107); Cholesterol 113 mg/dL (200); Creatinine, Serum 1.36 mg/dL (0.55-1.02); EST Glomerular Filtration Rate 40 mL/min (>60); Est Glom Filt Rate - Afr Amer 49 mL/min (>60); Estimated Creatinine Clearance 28.27 ml/min; Glucose 119 mg/dL (74-106); High Density Lipoprotein 28 mg/dL; Phosphorus 3.3 mg/dL (2.5-4.9); Potassium 4.4 mmol/L (3.5-5.1); Sodium Level 142 mmol/L (136-145); Thyroid Stim Hormone (TSH) 0.42 uIU/mL (0.358-3.74); Triglycerides 97 mg/dL; Very Low Density Lipoprotein 19 mg/dL (5-40)
[2017-09-29] MEDS: Aspirin E.C. 81 MG Tablet PO (08:12)
[2017-09-29] MEDS: Gabapentin 300 MG Capsule PO ×2 (08:12→11:32)
--- NOTE | 2017-09-29 09:19 | CASEMGMT ---
MISAEL spoke with patient about Healthcare Power of Regional Economist and Healthcare Living Will. SW explained documents to her. She will think about whether or not she would like to complete documents. MISAEL told her to ask for SW or CM if she would like to complete documents. Zina CAREY MSW
[2017-09-29] MEDS: Triamcinolone 0.5% Cream 1 APPLIC TOPICAL (10:19)
[2017-09-29] MEDS: Tolterodine Tartrate 4 MG CAP.SA PO (10:20)
[2017-09-29] MEDS: Citalopram 20 MG Tablet PO (10:20)
[2017-09-29] MEDS: Pantoprazole Sodium 40 MG Tablet PO (10:20)
[2017-09-29] MEDS: Carvedilol 6.25 MG Tablet PO (10:20)
--- NOTE | 2017-09-29 10:59 | PCM.DC ---
- Discharge Diagnoses Current Active Problems: Current Active and Chronic Problems (Last Updated 08/31/17 @ 12:57 by Dariela Smith) Atypical chest pain (Acute) Acute on recurrent fall (Acute) Adult failure to thrive (Acute) Chronic diastolic heart failure (Chronic) You will use the following diet at home:: Cardiac - <2 g sodium daily Your food should be the consistency of: Regular Your liquids should be the consistency of: Regular/Thin Discharge Activity: Return to Normal Activity Allergies/Adverse Reactions: Allergies codeine Adverse Reaction (Verified 07/03/17 16:07) Upset Stomach Medications to take at Discharge Citalopram Hydrobromide [Citalopram HBr] 20 mg PO DAILY 03/06/17 Cyclobenzaprine [Flexeril] 5 mg PO DAILY 03/06/17 Dicyclomine HCl [Bentyl] 10 mg PO TIDAC PRN 03/06/17 Gabapentin [Neurontin] 300 mg PO TIDCM 03/06/17 Pantoprazole Sodium [Protonix] 40 mg PO DAILY 03/06/17 Albuterol IH (ProAir) [Proair Hfa] 2 puff INHALATION Q4H PRN PRN 07/03/17 Aspirin [Aspirin EC] 81 mg PO DAILY 07/03/17 Atorvastatin Calcium [Lipitor] 80 mg PO QHS 07/03/17 Carvedilol 6.25 mg PO BID 07/03/17 Fluticasone/Salmeterol [Advair 500/50 Mcg Diskus] 1 puff INHALATION BID 07/03/17 Hydrocodone Bitart/Apap 5-325 [[place] 5/325] 1 tab PO Q6H PRN PRN 07/03/17 Lisinopril [Zestril] 10 mg PO DAILY 07/03/17 Nitroglycerin [Nitrostat] 0.4 mg SUBLINGUAL Q5M PRN 07/03/17 Tolterodine Tartrate [Tolterodine Tartrate ER] 4 mg PO DAILY 07/03/17 Triamcinolone 0.5% Cream [Kenalog] 1 applic TOPICAL BID 07/03/17 Primary Care Physician: Amilcar Mahoney [Primary Care Provider] - Please follow up with your Primary Care Physician in: 1-2 weeks Proposed Discharge Date: 09/29/17
--- NOTE | 2017-09-29 11:48 | PCM.DC.SUM ---
<Rolly Escalante - Last Filed: 09/29/17 11:48> Discharge Date and Diagnosis Date of Admission: 09/28/17 Date of Discharge: 09/29/17 - Primary Discharge Diagnosis Active and Suspected Problems (Last Updated 08/31/17 @ 12:57 by Dariela Smith) Atypical chest pain 2/2 costochondritis Acute on recurrent fall (Acute) LAURO 2/2 dehydration Hx TIA Hx CAD HLD HTN Obesity Chronic diastolic CHF GERD and hiatal hernia - Secondary Discharge Diagnosis Chronic Problems (Last Updated 08/31/17 @ 12:57 by Dariela Smith) Chronic diastolic heart failure (Chronic) Atherosclerotic heart disease of [place] coronary artery without angina pectoris (Chronic) CAD (coronary artery disease) (Chronic) HLD (hyperlipidemia) (Chronic) HTN (hypertension) (Chronic) Chronic respiratory failure with hypoxia and hypercapnia (Chronic) Obesity (BMI 30.0-34.9) (Chronic) Hiatal hernia with gastroesophageal reflux (Chronic) COPD (chronic obstructive pulmonary disease) (Chronic) Osteoarthritis (Chronic) Venous insufficiency of both lower extremities (Chronic) Hospital Course and Treatment Imaging Results: CT/Abdomen/Pelvis without Cont IMPRESSION: Sigmoid diverticulosis. 1.5 cm hypodense nodule in the left adrenal gland most likely secondary to adenoma. Right renal cyst. RAD/Ribs Uni Min 3V w/PA Chest IMPRESSION: RIBS: Normal x-ray examination of the ribs. CHEST: No acute abnormality is seen. Operations: None Procedures: None Summary of Care Provided: Physical exam on day of discharge: General: Resting comfortably NAD Psych: A/Ox3 normal affect HEENT: [place]ARR[place] AT NC Neck: Supple NT CV: RRR no m/t/r/g/h Resp: CTA Abd: [id number] Soft NT no guarding or rigidity Ext: DP2+= no edema Skin: W/D normal turgor Lymph/Heme: No active bleeding or adenopathy Neuro: CN2-12 intact Hospital course: The patient is a 77 year old F with a history of hypertension, CAD, prior RI, history of TIA, GERD with hiatal hernia, hyperlipidemia, obesity, who presented to the emergency room complaining of chest pain after falling at home. Patient normally uses a walker and is on 3 L of oxygen chronically at home secondary to COPD. She had a heart catheterization in February 2017 at that time was found with left main ulcerated plaque 50-80% stenosis and had a 2D echo with EF 60%. The patient fell 2 times that evening and then was brought to the hospital by EMS. She could fall and straightforward and did admit to landing on her chest. She described midsternal chest pain 8 out of 10, sharp. She had no significant changes on her EKG and a negative troponin. She also had a negative x-ray of her chest and ribs and a negative CT of her abdomen and pelvis. She had an elevation in her BUN and creatinine and was given IV hydration. Her chest pain was felt to be secondary to costochondritis from falling on her chest however with her significant cardiac history was decided to keep her in the hospital overnight to monitor her cardiac enzymes and to keep her on telemetry. There were no acute changes. We had her work with PT OT the following morning as she had been falling at home. He did not find any need for any further therapy at this time. Her renal function improved significantly overnight and it was felt to be secondary to dehydration. The patient admitted that she would only drink a couple sips of water daily, only to take her medication. I advised her she needs to increase her oral intake, and I also advised that she have a BMP in 5 days to monitor her renal function. She will need to follow-up with her PCP in 1-2 weeks. She is discharged home in stable condition. This patient was seen by Rolly Escalante PA-C under the supervision of Doctor Rubin. [] Discharge Diet: Low fat/ Low Cholesterol, 2000 mg Sodium Diet Discharge Activity: Return to Normal Activity Home Medications: Medications to take at Discharge Citalopram Hydrobromide [Citalopram HBr] 20 mg PO DAILY 03/06/17 Cyclobenzaprine [Flexeril] 5 mg PO DAILY 03/06/17 Dicyclomine HCl [Bentyl] 10 mg PO TIDAC PRN 03/06/17 Gabapentin [Neurontin] 300 mg PO TIDCM 03/06/17 Pantoprazole Sodium [Protonix] 40 mg PO DAILY 03/06/17 Albuterol IH (ProAir) [Proair Hfa] 2 puff INHALATION Q4H PRN PRN 07/03/17 Aspirin [Aspirin EC] 81 mg PO DAILY 07/03/17 Atorvastatin Calcium [Lipitor] 80 mg PO QHS 07/03/17 Carvedilol 6.25 mg PO BID 07/03/17 Fluticasone/Salmeterol [Advair 500/50 Mcg Diskus] 1 puff INHALATION BID 07/03/17 Hydrocodone Bitart/Apap 5-325 [[place] 5/325] 1 tab PO Q6H PRN PRN 07/03/17 Lisinopril [Zestril] 10 mg PO DAILY 07/03/17 Nitroglycerin [Nitrostat] 0.4 mg SUBLINGUAL Q5M PRN 07/03/17 Tolterodine Tartrate [Tolterodine Tartrate ER] 4 mg PO DAILY 07/03/17 Triamcinolone 0.5% Cream [Kenalog] 1 applic TOPICAL BID 07/03/17 Primary Care Physician: Amilcar Mahoney [Primary Care Provider] - Please follow up with your Primary Care Physician in: 1-2 weeks Disposition: Home Minutes spent on discharge:: 35 Patient Condition:: Stable Medical Necessity - Tobacco Use Smoking Status: Former smoker Tobacco Use: Cigarettes Meaningful Use Info Meaningful Use Diagnoses (Choose all that apply): None applicable <Marely Rubin - Last Filed: 09/29/17 15:19> Discharge Date and Diagnosis - Secondary Discharge Diagnosis Chronic Problems (Last Updated 08/31/17 @ 12:57 by Dariela Smith) Chronic diastolic heart failure (Chronic) Atherosclerotic heart disease of [place] coronary artery without angina pectoris (Chronic) CAD (coronary artery disease) (Chronic) HLD (hyperlipidemia) (Chronic) HTN (hypertension) (Chronic) Chronic respiratory failure with hypoxia and hypercapnia (Chronic) Obesity (BMI 30.0-34.9) (Chronic) Hiatal hernia with gastroesophageal reflux (Chronic) COPD (chronic obstructive pulmonary disease) (Chronic) Osteoarthritis (Chronic) Venous insufficiency of both lower extremities (Chronic) Hospital Course and Treatment Summary of Care Provided: The patient is a 77 year old F [] Code Visit Inpatient E&M: 92491 Disch Hosp
--- NOTE | 2017-09-29 11:55 | DS.PCM_ITS ---
<Rolly Escalante - Last Filed: 09/29/17 11:48> Discharge Date and Diagnosis Date of Admission: 09/28/17 Date of Discharge: 09/29/17 - Primary Discharge Diagnosis Active and Suspected Problems (Last Updated 08/31/17 @ 12:57 by Dariela Smith) Atypical chest pain 2/2 costochondritis Acute on recurrent fall (Acute) LAURO 2/2 dehydration Hx TIA Hx CAD HLD HTN Obesity Chronic diastolic CHF GERD and hiatal hernia - Secondary Discharge Diagnosis Chronic Problems (Last Updated 08/31/17 @ 12:57 by Dariela Smith) Chronic diastolic heart failure (Chronic) Atherosclerotic heart disease of [place] coronary artery without angina pectoris (Chronic) CAD (coronary artery disease) (Chronic) HLD (hyperlipidemia) (Chronic) HTN (hypertension) (Chronic) Chronic respiratory failure with hypoxia and hypercapnia (Chronic) Obesity (BMI 30.0-34.9) (Chronic) Hiatal hernia with gastroesophageal reflux (Chronic) COPD (chronic obstructive pulmonary disease) (Chronic) Osteoarthritis (Chronic) Venous insufficiency of both lower extremities (Chronic) Hospital Course and Treatment Imaging Results: CT/Abdomen/Pelvis without Cont IMPRESSION: Sigmoid diverticulosis. 1.5 cm hypodense nodule in the left adrenal gland most likely secondary to adenoma. Right renal cyst. RAD/Ribs Uni Min 3V w/PA Chest IMPRESSION: RIBS: Normal x-ray examination of the ribs. CHEST: No acute abnormality is seen. Operations: None Procedures: None Summary of Care Provided: Physical exam on day of discharge: General: Resting comfortably NAD Psych: A/Ox3 normal affect HEENT: [place] AT NC Neck: Supple NT CV: RRR no m/t/r/g/h Resp: CTA Abd: [id number] Soft NT no guarding or rigidity Ext: DP2+= no edema Skin: W/D normal turgor Lymph/Heme: No active bleeding or adenopathy Neuro: CN2-12 intact Hospital course: The patient is a 77 year old F with a history of hypertension, CAD, prior RI, history of TIA, GERD with hiatal hernia, hyperlipidemia, obesity, who presented to the emergency room complaining of chest pain after falling at home. Patient normally uses a walker and is on 3 L of oxygen chronically at home secondary to COPD. She had a heart catheterization in February 2017 at that time was found with left main ulcerated plaque 50-80% stenosis and had a 2D echo with EF 60%. The patient fell 2 times that evening and then was brought to the hospital by EMS. She could fall and straightforward and did admit to landing on her chest. She described midsternal chest pain 8 out of 10, sharp. She had no significant changes on her EKG and a negative troponin. She also had a negative x-ray of her chest and ribs and a negative CT of her abdomen and pelvis. She had an elevation in her BUN and creatinine and was given IV hydration. Her chest pain was felt to be secondary to costochondritis from falling on her chest however with her significant cardiac history was decided to keep her in the hospital overnight to monitor her cardiac enzymes and to keep her on telemetry. There were no acute changes. We had her work with PT OT the following morning as she had been falling at home. He did not find any need for any further therapy at this time. Her renal function improved significantly overnight and it was felt to be secondary to dehydration. The patient admitted that she would only drink a couple sips of water daily, only to take her medication. I advised her she needs to increase her oral intake, and I also advised that she have a BMP in 5 days to monitor her renal function. She will need to follow-up with her PCP in 1-2 weeks. She is discharged home in stable condition. This patient was seen by Rolly Escalante PA-C under the supervision of Doctor Rubin. [] Discharge Diet: Low fat/ Low Cholesterol, 2000 mg Sodium Diet Discharge Activity: Return to Normal Activity Home Medications: Medications to take at Discharge Citalopram Hydrobromide [Citalopram HBr] 20 mg PO DAILY 03/06/17 Cyclobenzaprine [Flexeril] 5 mg PO DAILY 03/06/17 Dicyclomine HCl [Bentyl] 10 mg PO TIDAC PRN 03/06/17 Gabapentin [Neurontin] 300 mg PO TIDCM 03/06/17 Pantoprazole Sodium [Protonix] 40 mg PO DAILY 03/06/17 Albuterol IH (ProAir) [Proair Hfa] 2 puff INHALATION Q4H PRN PRN 07/03/17 Aspirin [Aspirin EC] 81 mg PO DAILY 07/03/17 Atorvastatin Calcium [Lipitor] 80 mg PO QHS 07/03/17 Carvedilol 6.25 mg PO BID 07/03/17 Fluticasone/Salmeterol [Advair 500/50 Mcg Diskus] 1 puff INHALATION BID Hydrocodone Bitart/Apap 5-325 [[place] 5/325] 1 tab PO Q6H PRN PRN 07/03/17 Lisinopril [Zestril] 10 mg PO DAILY 07/03/17 Nitroglycerin [Nitrostat] 0.4 mg SUBLINGUAL Q5M PRN 07/03/17 Tolterodine Tartrate [Tolterodine Tartrate ER] 4 mg PO DAILY 07/03/17 Triamcinolone 0.5% Cream [Kenalog] 1 applic TOPICAL BID 07/03/17 Primary Care Physician: Amilcar Mahoney [Primary Care Provider] - Please follow up with your Primary Care Physician in: 1-2 weeks Disposition: Home Minutes spent on discharge:: 35 Patient Condition:: Stable Medical Necessity - Tobacco Use Smoking Status: Former smoker Tobacco Use: Cigarettes Meaningful Use Info Meaningful Use Diagnoses (Choose all that apply): None applicable <Marely Rubin - Last Filed: 09/29/17 15:19> Discharge Date and Diagnosis - Secondary Discharge Diagnosis Chronic Problems (Last Updated 08/31/17 @ 12:57 by Dariela Smith) Chronic diastolic heart failure (Chronic) Atherosclerotic heart disease of [place] coronary artery without angina pectoris (Chronic) CAD (coronary artery disease) (Chronic) HLD (hyperlipidemia) (Chronic) HTN (hypertension) (Chronic) Chronic respiratory failure with hypoxia and hypercapnia (Chronic) Obesity (BMI 30.0-34.9) (Chronic) Hiatal hernia with gastroesophageal reflux (Chronic) COPD (chronic obstructive pulmonary disease) (Chronic) Osteoarthritis (Chronic) Venous insufficiency of both lower extremities (Chronic) Hospital Course and Treatment Summary of Care Provided: The patient is a 77 year old F [] Code Visit Inpatient E&M: 12253 Disch Hosp
--- NOTE | 2017-09-30 16:04 | CASEMGMT ---
RN CM Discharge Follow-up Phone Call: [facility]: Luis Enrique Strata: 3 Call Date: 09/30/17 Discharge Date: 09/29/17 Time of Call: 1605 Duration: 1 min Admitting Diagnosis: Chest pain, fall RN CM attempted to call patient regarding recent hospitalization. No answer, voice message left with return contact information.
== END 2017-09-29 12:57 | disposition home or self-care (01) | DRG 206 ==
LOC: ED 11:49 → PCU 14:33
PROVIDERS: Admitting Provider Internal Medicine; Emergency Provider Emergency Medicine; Family Provider Family Medicine; PCP Family Medicine; Visit Provider Internal Medicine
DX: M94.0 Chondrocostal junction syndrome [Tietze] (principal); N17.9 Acute kidney failure, unspecified; I50.32 Chronic diastolic (congestive) heart failure; J96.11 Chronic respiratory failure with hypoxia; J96.12 Chronic respiratory failure with hypercapnia; I13.0 Hypertensive heart and chronic kidney disease with heart failure and stage 1 through stage 4 chronic kidney disease, or unspecified chronic kidney disease; E86.0 Dehydration; I25.10 Atherosclerotic heart disease of native coronary artery without angina pectoris; N18.3 Chronic kidney disease, stage 3 (moderate); E78.5 Hyperlipidemia, unspecified; E66.9 Obesity, unspecified; R62.7 Adult failure to thrive; K21.9 Gastro-esophageal reflux disease without esophagitis; I87.2 Venous insufficiency (chronic) (peripheral); K44.9 Diaphragmatic hernia without obstruction or gangrene; J44.9 Chronic obstructive pulmonary disease, unspecified; Z95.5 Presence of coronary angioplasty implant and graft; I25.2 Old myocardial infarction; Z86.73 Personal history of transient ischemic attack (TIA), and cerebral infarction without residual deficits; Z96.652 Presence of left artificial knee joint; Z87.891 Personal history of nicotine dependence; Z68.30 Body mass index [BMI] 30.0-30.9, adult; Z91.81 History of falling
CPT/HCPCS: 36415; 71101; 74176; 80048; 80061; 80069; 80076; 83735; 83880; 84443; 84484; 85025; 93005; 94640; 97162; 97166; 99285; J7030